=== PATIENT | male | born 1950 | race Caucasian/White ===

== ENCOUNTER 2017-11-21 19:53 | Emergency (ER) | payer MEDICARE, MEDICAID, SELFPAY ==
[2017-11-21 19:55] VITALS: BP 164/93; PULSE 63; RESP 17; TEMP 37.4; O2SAT 97; BMI 26.0
--- NOTE | 2017-11-21 20:00 | RAD_ITS ---
STUDY: X-RAY - RIGHT WRIST REASON FOR EXAM: Male, 67 years old. Injury and pain TECHNIQUE: Three view(s) of the RIGHT wrist were obtained. COMPARISON: None. FINDINGS: Bones: There are no acute osseous abnormalities. Joints: The visualized joints are unremarkable. Soft tissues: The soft tissues are unremarkable. Foreign body: None RAD/Wrist min 3 Views IMPRESSION: No acute abnormalities are seen in the right wrist. Electronically Signed: Puja Lopez MD at 20:28 EDT Tel Direct: [phone], Service support ,
--- NOTE | 2017-11-21 20:05 | RAD_ITS ---
STUDY: X-RAY - RIGHT HAND REASON FOR EXAM: Male, 67 years old. Injury and pain TECHNIQUE: Three view(s) of the hand were obtained. COMPARISON: None. FINDINGS: Bones: There are no acute osseous abnormalities. Joints: There are mild degenerative changes scattered in the interphalangeal joints. Soft tissues: The soft tissues are unremarkable. Foreign body: None RAD/Hand 2 Views IMPRESSION: No acute abnormalities are seen in the right hand. Electronically Signed: Puja Lopez MD at 20:30 EDT Tel Direct: [phone], Service support ,
--- NOTE | 2017-11-21 20:58 | ED.VISSUMM ---
- ER Visit Summary Date of Service: 11/21/17 Chief Complaint: Right wrist injury History of Present Illness: The patient is a 67 M who fell approximately 5 feet from a ladder at noon today. Patient states he was trying to carry something in each hand and lost his balance. He initially had no pain from the fall. Around 6 PM this evening he developed right wrist pain. Patient states in the past he had broken his left wrist and did not have pain until several hours after the injury so he was concerned about his right wrist tonight. He denies striking his head or loss of consciousness. He does not take any anticoagulants. Physical Examination: Vital signs unremarkable other than Blood pressure is 164/93. Head neck examination is unremarkable with no sign of trauma. Heart is regular rate and rhythm. Lung sounds are clear. There is no chest wall tenderness. Abdomen is soft nontender. Right upper extremity examination was mild tenderness diffusely around the right wrist. There is no deformity. Full range of motion is noted. There is no tenderness at the elbow or shoulder. Test Results: Right wrist and hand x-rays are obtained per nursing protocol and reveal no acute fracture. Emergency Department Course and Treatment: Patient had taken some [id number] pain medication prior to arrival and declined anything further for pain here. He is placed in a Velcro wrist splint. He will follow-up with his primary care physician as needed. Treatment Plan: [] Disposition: Discharge Impression: Fall with right wrist sprain This note was generated with [employer] dictation software. It may contain incorrect words, spelling, and punctuation that were not noted in review of the chart prior to signing ED Disposition - Plan for ED Patient: Disposition: Home or Assisted Living Chief Complaint: Upper Extremity Injury Instructions: ED Sprain Wrist Referrals: [facility],Out of [Primary Care Provider] - 1 Week if not improving
[2017-11-21 21:05] VITALS: PULSE 70; RESP 16; O2SAT 98
== END 2017-11-21 21:06 | disposition home or self-care (01) ==
PROVIDERS: Emergency Provider Emergency Medicine
DX: S63.501A Unspecified sprain of right wrist, initial encounter (principal); W11.XXXA Fall on and from ladder, initial encounter; Y92.9 Unspecified place or not applicable; Y99.9 Unspecified external cause status
CPT/HCPCS: 73110; 73120; 99283

== ENCOUNTER → 2021-07-12 15:51 | Outpatient (CLI) | payer MEDICARE, MEDICAID, SELFPAY ==
[2021-07-12 15:54] LABS: Bacteria 0 SEEN /hpf (None Seen); Mucous, Urine 0 SEEN /hpf (<or=2+); Red Blood Cells-Urine 0 SEEN /hpf (0-5); Squamous Epithelial Cells - UA 0 SEEN /hpf (0-5)
[2021-07-12 18:23] LABS: Absolute Lymphocyte Count 1.19 X10^3/uL (0.83-4.51); Basophil# 0.05 X10^3/uL; Basophil% 1.1 % (0-1); Eosinophil# 0.05 X10^3/uL; Eosinophils% 1.1 % (0-5); Hematocrit 44.2 % (40-54); Hemoglobin 14.7 g/dL (13.0-16.5); Lymphocyte # 1.19 X10^3/ul (0.83-4.51); Lymphocyte % 25.5 % (19-41); Mean Corp Hgb Conc 33.3 g/dL (32-36); Mean Corpuscular Hgb 31.3 pg (27.0-32.0); Mean Platelet Vol. 11.7 fl (6.2-12.0); Monocyte# 0.32 X10^3/uL; Monocyte% 6.9 % (0-10); NRBC Flagged by Analyzer 0 % (0-5); Neutrophil # 3.04 X10^3/uL (2.7-7.7); Neutrophil % 65.2 % (47-70); Platelet Count 143 K/mm3 (150-450); RBC Distribution Width CV 12.7 % (11.6-14.6); White Blood Count 4.7 K/mm3 (4.4-11.0)
[2021-07-12 18:30] LABS: Color, Urine Yellow (Yellow); Glucose, Dipstick Normal (Normal); Ketone-Dipstick 5 mg/dl (Negative); Leukocyte Esterase-Dipstick 500 /ul (Negative); Nitrite-Dipstick Negative (Negative); Occult Blood-Urine 25 /ul (Negative); Protein-Dipstick Negative (Negative); Urine Bilirubin Dipstick Negative (Negative); Urine Clarity Clear (Clear); Urine Urobilinogen Normal (Normal)
[2021-07-12 19:00] LABS: White Blood Cells 10-25 SEEN /hpf (0-5)
[2021-07-12 19:05] LABS: ALB/GLOB Ratio 1.1 RATIO (0.9-2.4); AST(SGOT) 23 U/L (15-37); Alanine Aminotransfer ALT/SGPT 27 U/L (16-61); Albumin, Serum 4.1 g/dL (3.2-5.0); Alkaline Phosphatase 70 U/L (45-117); Anion Gap 9 (5-15); BUN 19 mg/dL (7-18); BUN/Creat Ratio 18.6 RATIO (10-20); Calcium,Total 9.1 mg/dL (8.5-10.1); Chloride 106 mmol/L (98-107); Cholesterol 141 mg/dL (200); Creatinine, Serum 1.02 mg/dL (0.70-1.30); EST Glomerular Filtration Rate 77 mL/min (>60); Est Glom Filt Rate - Afr Amer 93 mL/min (>60); Globulin 3.6 g/dL (2.2-4.2); Glucose 83 mg/dL (74-106); High Density Lipoprotein 52 mg/dL; Potassium 3.5 mmol/L (3.5-5.1); Protein, Total 7.7 g/dL (6.4-8.2); Sodium Level 141 mmol/L (136-145); Thyroid Stim Hormone (TSH) 2.31 uIU/mL (0.358-3.74); Triglycerides 48 mg/dL; Very Low Density Lipoprotein 10 mg/dL (5-40)
== END ==
PROVIDERS: Visit Provider Family Medicine
DX: I10 Essential (primary) hypertension (principal)
CPT/HCPCS: 36415; 80053; 80061; 81001; 84443; 85025

== ENCOUNTER 2021-07-18 11:04 | Outpatient (CLI) | payer MEDICARE, MEDICAID, SELFPAY | END 2021-07-18 23:59 | disposition home or self-care (01) | LOC: LABSPEC 11:08 | PROVIDERS: Visit Provider Family Medicine | DX: R31.9 Hematuria, unspecified (principal) | CPT/HCPCS: 87077; 87086; 87088; 87186 ==

== ENCOUNTER 2021-07-29 10:43 | Outpatient (CLI) | payer MEDICARE, MEDICAID, SELFPAY ==
--- NOTE | 2021-07-29 10:47 | ECHOD_ITS ---
Reason For Study: Murmur Procedure This was a 2D Doppler, Color Flow transthoracic echocardiogram. The study was technically difficult. Exam performed in department. Left Ventricle Normal LV size. Mid cavitary false tendon noted. Left ventricular systolic function is normal. The estimated ejection fraction is 55 %. No evidence for diastolic dysfunction. No regional wall motion abnormalities noted. Right Ventricle Normal RV size. Normal systolic function. Atria The left atrium is mildly enlarged. Normal right atrium. No doppler evidence for ASD. Mitral Valve There is no mitral annular calcification. Chordal systolic anterior motion of the mitral valve. Trivial mitral valve insufficiency. Tricuspid Valve Normal tricuspid valve. Trivial tricuspid valve insufficiency. Right ventricular systolic pressure estimated to be 26 mmHg. Aortic Valve The aortic valve is not well visualized, however, based upon the images obtained there appears to be thickening, calcification, and partial restriction. Mild (1+) aortic valve insufficiency. Pulmonic Valve The pulmonic valve is not well visualized. Great Vessels Normal sized aortic root. Pericardium/Pleural No pericardial effusion. MMode/2D Measurements & Calculations LVIDd: 4.6 cm IVSd: 1.1 cm LVOT diam: 2.2 cm LVIDs: 3.6 cm LVPWd: 1.1 cm LVOT area: 3.8 cm2 RVDd: 3.3 cm FS: 22.2 % Ao root diam: 3.6 cm LAV(MOD-bp): 62.0 ml LVAd ap4: 39.2 cm2 LAV(MOD-bp) Indexed: 29.9 ml/m2 LVLd ap4: 9.9 cm LAV(MOD-sp2): 59.4 ml EDV(MOD-sp4): 126.2 ml LAV(MOD-sp4): 62.2 ml EDV(sp4-el): 131.7 ml LVAs ap4: 23.7 cm2 LVLs ap4: 8.1 cm ESV(MOD-sp4): 56.1 ml ESV(sp4-el): 58.9 ml EF(MOD-sp4): 55.5 % EF(sp4-el): 55.3 % SV(MOD-sp4): 70.1 ml SV(sp4-el): 72.9 ml LA A4 area: 20.3 cm2 LA dimension(2D): 4.6 cm RA A4 area: 13.9 cm2 Doppler Measurements & Calculations MV E max chas: 54.0 cm/sec Lat Peak E' Chas: 9.8 cm/sec Med Peak E' Chas: 7.0 cm/sec MV A max chas: 84.2 cm/sec E/E' lat: 5.5 E/E' med: 7.7 MV E/A: 0.64 Ao V2 max: 198.3 cm/sec AI max chas: 492.8 cm/sec LV V1 max: 145.5 cm/sec Ao max P.7 mmHg AI max P.1 mmHg LV V1 max P.5 mmHg Ao V2 mean: 123.7 cm/sec LV V1 mean P.6 mmHg Ao mean P.1 mmHg AI dec slope: 296.6 cm/sec2 LV V1 mean: 102.0 cm/sec Ao V2 VTI: 40.8 cm AI P1/2t: 486.7 msec LV V1 VTI: 34.7 cm JENNIFER(I,D): 3.3 cm2 JENNIFER(V,D): 2.8 cm2 SV(LVOT): 133.0 ml PA V2 max: 88.9 cm/sec TR max chas: 237.1 cm/sec TR max P.5 mmHg ECHO/Echo Complete Interpretation Summary The study was technically difficult. Left ventricular systolic function is normal. The estimated ejection fraction is 55 %. Mid cavitary false tendon noted. The left atrium is mildly enlarged. Chordal systolic anterior motion of the mitral valve. Trivial mitral valve insufficiency. Trivial tricuspid valve insufficiency. The aortic valve is not well visualized, however, based upon the images obtaine d there appears to be thickening, calcification, and partial restriction. Mild (1+) aortic valve insufficiency. Right ventricular systolic pressure estimated to be 26 mmHg. No evidence for diastolic dysfunction. Ordering Physician: Rangel Cruz Referring Physician: Rangel Cruz Performed By: Corina Cortés RDCS
== END 2021-07-29 23:59 | disposition short-term general hospital (02) ==
PROVIDERS: PCP Family Medicine; Referring Provider Family Medicine; Visit Provider Family Medicine
DX: R01.1 Cardiac murmur, unspecified (principal)
CPT/HCPCS: 93306

== ENCOUNTER → 2022-02-22 | Outpatient (CLI) | payer MEDICARE, MEDICAID, SELFPAY ==
[2022-02-22 10:26] LABS: ALB/GLOB Ratio 1.4 RATIO (0.9-2.4); AST(SGOT) 22 U/L (15-37); Alanine Aminotransfer ALT/SGPT 20 U/L (16-61); Albumin, Serum 4.1 g/dL (3.2-5.0); Alkaline Phosphatase 61 U/L (45-117); Anion Gap 7 (5-15); BUN 20 mg/dL (7-18); BUN/Creat Ratio 16.8 RATIO (10-20); Calcium,Total 9.1 mg/dL (8.5-10.1); Chloride 98 mmol/L (98-107); Cholesterol 156 mg/dL (200); Creatinine, Serum 1.19 mg/dL (0.70-1.30); EST Glomerular Filtration Rate 64 mL/min (>60); Est Glom Filt Rate - Afr Amer 78 mL/min (>60); Globulin 2.9 g/dL (2.2-4.2); Glucose 98 mg/dL (74-106); High Density Lipoprotein 52 mg/dL; Potassium 4.1 mmol/L (3.5-5.1); Sodium Level 133 mmol/L (136-145); Triglycerides 55 mg/dL; Very Low Density Lipoprotein 11 mg/dL (5-40)
== END | disposition home or self-care (01) ==
LOC: MFPLAB 09:06
PROVIDERS: PCP Family Medicine; Referring Provider Family Medicine; Visit Provider Nurse Practitioner Family
DX: I10 Essential (primary) hypertension (principal); Z13.220 Encounter for screening for lipoid disorders; Z12.5 Encounter for screening for malignant neoplasm of prostate
CPT/HCPCS: 36415; 80053; 80061; 84153; G0103

== ENCOUNTER → 2022-03-09 | Outpatient (CLI) | payer MEDICARE, MEDICAID, SELFPAY ==
[2022-03-14 18:17] LABS: PSA, Free 1.43 ng/mL; PSA, Free % 29.2 % (.); PSA, Total 4.9 ng/mL (0.0-4.0)
== END | disposition home or self-care (01) ==
PROVIDERS: PCP Family Medicine; Referring Provider Family Medicine; Visit Provider Nurse Practitioner Family
DX: R97.20 Elevated prostate specific antigen [PSA] (principal)
CPT/HCPCS: 84153

== ENCOUNTER 2022-05-01 07:00 | Outpatient (RCR) | payer MEDICARE, MEDICAID, SELFPAY ==
--- NOTE | 2022-04-03 14:03 | HP.PTEVAL_ITS ---
Patient's Visit Information FUAD FELIX is a 71 year old M referred to Physical Therapy by LENARD Sher with a diagnosis of Left Knee and Lumbar Radiculopathy. Date of Evaluation: 04/03/22 Physical Therapist: Crystal Blue DPT - Visit Plan Frequency: 2x /Week Duration: 4 Weeks Plan: Focus on LE and core strength/stabilization. HEP: Posture, SLS, Sit to Stand - Subjective 4.5 years ago walking at [employer]- 5x a week for 45 min- left knee was causing discomfort- tried to walk it out- went to [employer] and bought a small knee brace- rest and it was okay pain level 1-2/10. He has tried different knee braces. In 2020 he spent 7 days shoveling gravel- and he never hurt. In May 2021 he cut down lots of trees- without pain. September 2021 he started to have a 6-7/10. He went to [facility] in [place] and saw LENARD Jones and they did x-rays which showed a lumbar spine abnormality and a bone on bone in the knee. He can't stand for long periods of time (more than 15 minutes). She gave him a Medrol dose pack and Meloxicam and Tylenol- Voltaran gel 4x a day. After the steroids he is almost zero. He does have some discomfort in his knee 1-2/10. He wears a brace all the time- almost painfree with the brace. Prior to the steroid he had pain in the left hip that radiated to the ankle. First 2 hours in the AM he has no pain but as the day progresses it gets worse. He had Numbness when he was standing for long periods of time. Eases: sitting down. He is very active. When he was doing yard work he was a 2/10. He is wearing the knee brace pretty much the whole day. No change in bowel and bladder. No problems with stairs. Sleep: was prior to steroids- always slept on the left side- side to side movement. No specific exercise program. PMHx: HTN Meds: liptor, hydrochlorothiazide. - Objective Posture: moderate FH, RS- can correct RS but not FH with verbal cues- does not maintain. Gait: no deviation noted- good arm swing and trunk rotation. HR/TR: able with UE A. Stairs: asc/desc 8 recip with 1 HR- fair control with descent- decrease stance on left with asc. SLS: 3 sec bilaterally then LOB. ROM: WFL in all planes- mild pain at end range flexion in the knee. Strength: Core: fair minus, Hip: 4+/5, Knee: 5/5, Ankle: 5/5. Flex: HS: severe, Gastroc: moderate. Palpation: tender along medial joint line - Special Tests L/S Slump test left side: Negative L/S Slump test right side: Negative L/S Left Straight Leg Raise: Negative L/S Right Straight Leg Raise: Negative - Balance/Special Test Scores Lower Extremity Functional Score: 39 - Goals Goal 1:: Patient will be I with HEP and progression Goal Time Frame: 4-6 Weeks Goal 2:: Patient will maintain proper posture t/o tx session to demo increased core s/s Goal Time Frame: 4-6 Weeks Goal 3:: Patient will ambulate >300 feet with a normalized gait pattern Goal Time Frame: 4-6 Weeks Goal 4:: Patient will report 80% improvement Goal Time Frame: 4-6 Weeks - Rehabilitation Potential Physical Therapy Diagnosis: Patient presents with hypomobility- he has decreased LE and core strength/stabilization and muscular endurance leading to poor posture and increased pain with ADL's Rehabilitation Potential: Good - Anticipated Interventions Patient/Client Instruction: Educate patient on: Benefits of Fitness Program Therapeutic Exercise to Include: Strength training, Endurance training, Balance training, Coordination, Agility training, Body mechanics, Postural training, Flexibilty training, Gait and locomotor training, Neuromotor development, Dynamic Lumbar Stabilization, Scapular Strength/Stabilization For the Purpose of:: To improve muscle performance and motor function Cryotherapy (ice pack, ice massage): Yes Thermo therapy (hot pack): Yes Thank you for the opportunity to evaluate your patient. For Medicare and Medicare HMO plans, please review the plan of care and approve it. It will need to be FAXED BACK to us at [phone] for Medicare purposes. For Medicare only, by signing this I certify the plan of care. Please let me know if there are questions or concerns regarding this plan of care. Physician Signature: Date:
--- NOTE | 2022-05-01 07:53 | HP.PTDCSUM ---
It has been my pleasure to treat FUAD FELIX referred by LENARD Sher, with the diagnosis of Left Knee and Lumbar Radiculopathy for a total of 9 visit(s). Discharge Date: Please see the following information for a summary of their discharge status. Subjective: Patient reports that overall he is doing great. He has no pain with his normal ADL's. He over did a little this weekend and was sore 07/25. He has since recovered and has no pain this AM. He is back to walking at the [employer] and has joined [employer] to add a strength program. Left Knee Pain Intensity (Out of 10): 2 % Improvement: 90 Objective/Function: Posture: fair throughout in hard back chair. Gait: no deviation noted- good arm swing and trunk rotation. HR/TR: able with UE A. Stairs: asc/desc 8 recip with 1 HR- no deviation noted. SLS: 10 sec bilaterally then LOB. ROM: WFL in all planes. Strength: Core: fair minus, Hip: 4+/5, Knee: 5/5, Ankle: 5/5. Flex: HS: severe, Gastroc: moderate. Wears knee brace. Goal 1:: Patient will be I with HEP and progression Goal Progress: Goal Met Goal 2:: Patient will maintain proper posture t/o tx session to demo increased core s/s Goal Progress: Goal Met Goal 3:: Patient will ambulate >300 feet with a normalized gait pattern Goal Progress: Goal Met Goal 4:: Patient will report 80% improvement Goal Progress: Goal Met Plan: 05/01/22: Discharge to HEP- encouraged him to ask questions if they arise- Recommended going to [employer] for shoe assessment. Re-assess immediately following today's session. If there are questions or concerns regarding this patient's physical therapy, please feel free to call me at [phone]. Thank you for the referral of this patient. Sincerely, Crytsal Blue, DPT Balance/Gait/Functional tests - Balance/Special Test Scores Lower Extremity Functional Score: 74
== END 2022-05-01 08:19 | disposition home or self-care (01) ==
LOC: PT 07:00
PROVIDERS: PCP Family Medicine; Referring Provider Physician Assistant Surgical; Visit Provider Physician Assistant Surgical
DX: M17.12 Unilateral primary osteoarthritis, left knee (principal); M41.86 Other forms of scoliosis, lumbar region
CPT/HCPCS: 97110; 97162; 97164

== ENCOUNTER → 2022-05-18 | Outpatient (CLI) | payer MEDICARE, MEDICAID, SELFPAY ==
--- NOTE | 2022-05-18 07:19 | MRI_ITS ---
STUDY: MRI LUMBAR SPINE WITHOUT CONTRAST REASON FOR EXAM: Male, 71 years old. SPINAL STENOSIS TECHNIQUE: Standardized fat and water weighted pulse sequences were obtained in the sagittal and axial planes. COMPARISON: None FINDINGS: T11-T12 and T12-L1: (Sagittal images). Normal endplates. Normal disc height, hydration and morphology. No ventral epidural defects. Normal central canal and bilateral intervertebral neural foramina. Normal lumbar lordosis. There is no substantial scoliosis. Normal conus medullaris that terminates at the lower L1 vertebral body level. L1-2: Normal endplates. Moderate disc space narrowing. Mild degenerative retrolisthesis of L1 on L2. Mild asymmetric degenerative facet arthropathy. Normal central canal and bilateral lateral recesses. Normal bilateral intervertebral neural foramina. L2-3: Mild Modic type I degenerative vertebral marrow edema underlying the left side of the vertebral endplates. Moderate disc space narrowing. Mild degenerative retrolisthesis of L2 on L3. Mild asymmetric degenerative facet arthropathy. Normal central canal and bilateral lateral recesses. Normal bilateral intervertebral neural foramina. L3-4: Normal endplates. Normal disc height and hydration. Minimal ventral extradural defect due to small posterior bulging annulus. Normal facet joints. Normal central canal and bilateral lateral recesses. Normal bilateral intervertebral neural foramina. L4-5: Mild Modic type II degenerative vertebral marrow fat infiltration underneath the right side of the vertebral endplates. Moderate right-sided disc space height narrowing. Mild asymmetric degenerative facet arthropathy. Normal central canal and bilateral lateral recesses. Moderate stenosis of the right intervertebral neural foramen. Normal left intervertebral neural foramen. L5-S1: Normal endplates. Normal disc height, hydration and morphology. Normal bilateral facet joints. Normal central canal and bilateral lateral recesses. Normal bilateral intervertebral neural foramina. Normal visualized sacral ala. Normal visualized paraspinous soft tissue structures. MRI/Spine Lumbar (Routine) IMPRESSION: 1. Moderate stenosis of the right L4-L5 intervertebral neural foramen with suspicious impingement/entrapment of the right L4 nerve and moderate right-sided disc space narrowing with Modic type II degenerative changes underneath the vertebral endplates. 2. Mild left-sided L2-L3 intervertebral osteochondritis (Modic type I) and mild degenerative retrolisthesis of L2 on L3. 3. Minimal degenerative retrolisthesis of L1 on L2. 4. No MRI evidence of lumbar extruded disc fragment. Electronically Signed: Leonidas Sandoval MD at 15:36 EDT ,
== END | disposition home or self-care (01) ==
LOC: MRI 07:13
PROVIDERS: PCP Family Medicine; Referring Provider Orthopaedic Surgery; Visit Provider Orthopaedic Surgery
DX: M48.061 Spinal stenosis, lumbar region without neurogenic claudication (principal); M47.26 Other spondylosis with radiculopathy, lumbar region; M51.36 Other intervertebral disc degeneration, lumbar region
CPT/HCPCS: 72148

== ENCOUNTER → 2022-08-22 | Outpatient (CLI) | payer MEDICARE, MEDICAID, SELFPAY ==
[2022-08-22 09:04] LABS: Mucous, Urine 0 SEEN /hpf (<or=2+); Red Blood Cells-Urine 0 SEEN /hpf (0-5)
[2022-08-22 10:07] LABS: Absolute Lymphocyte Count 0.98 X10^3/uL (0.83-4.51); Absolute Neutrophil Count 3.8 X10^3/uL (2.0-7.7); Basophil# 0.03 X10^3/uL; Basophil% 0.6 % (0-1); Eosinophil# 0.04 X10^3/uL; Eosinophils% 0.8 % (0-5); Hematocrit 41.4 % (40-54); Hemoglobin 13.4 g/dL (13.0-16.5); Lymphocyte # 0.98 X10^3/ul (0.83-4.51); Lymphocyte % 18.8 % (19-41); Mean Corp Hgb Conc 32.4 g/dL (32-36); Mean Corpuscular Hgb 31.6 pg (27.0-32.0); Mean Corpuscular Volume 97.6 fL (80-94); Mean Platelet Vol. 11.9 fl (6.2-12.0); Monocyte# 0.36 X10^3/uL; Monocyte% 6.9 % (0-10); NRBC Flagged by Analyzer 0 % (0-5); Neutrophil # 3.78 X10^3/uL (2.7-7.7); Neutrophil % 72.7 % (47-70); Platelet Count 116 K/mm3 (150-450); RBC Distribution Width CV 12.7 % (11.6-14.6); RBC Distribution Width SD 44.9 fl (35.1-43.9); Red Blood Count 4.24 M/mm3 (4.6-6.2); White Blood Count 5.2 K/mm3 (4.4-11.0)
[2022-08-22 10:14] LABS: Color, Urine Yellow (Yellow); Glucose, Dipstick Normal (Normal); Ketone-Dipstick Negative (Negative); Leukocyte Esterase-Dipstick 500 /ul (Negative); Nitrite-Dipstick Negative (Negative); Occult Blood-Urine Negative /ul (Negative); Protein-Dipstick Negative (Negative); Specific Gravity, Urine 1.005 (1.002-1.030); Urine Bilirubin Dipstick Negative (Negative); Urine Clarity Clear (Clear); Urine Urobilinogen Normal (Normal); Urine pH 6.5 (5.0 - 8.0)
[2022-08-22 10:22] LABS: Bacteria RARE /hpf (None Seen); Squamous Epithelial Cells - UA 0-5 SEEN /hpf (0-5); White Blood Cells 5-10 SEEN /hpf (0-5)
[2022-08-22 11:44] LABS: ALB/GLOB Ratio 1.3 RATIO (0.9-2.4); AST(SGOT) 21 U/L (15-37); Alanine Aminotransfer ALT/SGPT 19 U/L (16-61); Albumin, Serum 3.9 g/dL (3.2-5.0); Alkaline Phosphatase 54 U/L (45-117); Anion Gap 8 (5-15); BUN 23 mg/dL (7-18); BUN/Creat Ratio 19.8 RATIO (10-20); Calcium,Total 9.3 mg/dL (8.5-10.1); Chloride 108 mmol/L (98-107); Cholesterol 136 mg/dL (200); Creatinine, Serum 1.16 mg/dL (0.70-1.30); EST Glomerular Filtration Rate 66 mL/min (>60); Est Glom Filt Rate - Afr Amer 80 mL/min (>60); Glucose 93 mg/dL (74-106); High Density Lipoprotein 46 mg/dL; Potassium 3.9 mmol/L (3.5-5.1); Protein, Total 6.9 g/dL (6.4-8.2); Sodium Level 142 mmol/L (136-145); Thyroid Stim Hormone (TSH) 2.09 uIU/mL (0.358-3.74); Triglycerides 59 mg/dL; Very Low Density Lipoprotein 12 mg/dL (5-40)
[2022-08-23 19:08] LABS: PSA, Free 1.55 ng/mL; PSA, Free % 31.7 % (.)
== END | disposition home or self-care (01) ==
LOC: MFPLAB 09:01
PROVIDERS: PCP Family Medicine; Referring Provider Family Medicine; Visit Provider Family Medicine
DX: I10 Essential (primary) hypertension (principal); R97.20 Elevated prostate specific antigen [PSA]
CPT/HCPCS: 36415; 80053; 80061; 81001; 84153; 84154; 84443; 85025

== ENCOUNTER → 2023-03-22 | Outpatient (CLI) | payer MEDICARE, MEDICAID, SELFPAY ==
[2023-03-22 08:39] LABS: Mucous, Urine 0 SEEN /hpf (<or=2+)
[2023-03-22 10:21] LABS: Color, Urine Yellow (Yellow); Glucose, Dipstick Normal (Normal); Ketone-Dipstick Negative (Negative); Leukocyte Esterase-Dipstick 100 /ul (Negative); Nitrite-Dipstick Negative (Negative); Occult Blood-Urine 10 /ul (Negative); Protein-Dipstick Negative (Negative); Urine Bilirubin Dipstick Negative (Negative); Urine Clarity Clear (Clear); Urine Urobilinogen Normal (Normal)
[2023-03-22 10:26] LABS: Absolute Lymphocyte Count 0.95 X10^3/uL (0.83-4.51); Absolute Neutrophil Count 2.8 X10^3/uL (2.0-7.7); Basophil# 0.04 X10^3/uL; Basophil% 0.9 % (0-1); Eosinophil# 0.12 X10^3/uL; Eosinophils% 2.8 % (0-5); Hemoglobin 13.6 g/dL (13.0-16.5); Lymphocyte # 0.95 X10^3/ul (0.83-4.51); Lymphocyte % 22.2 % (19-41); Mean Corp Hgb Conc 33.2 g/dL (32-36); Mean Corpuscular Hgb 31.9 pg (27.0-32.0); Mean Platelet Vol. 11.4 fl (6.2-12.0); Monocyte# 0.32 X10^3/uL; Monocyte% 7.5 % (0-10); NRBC Flagged by Analyzer 0 % (0-5); Neutrophil # 2.83 X10^3/uL (2.7-7.7); Neutrophil % 66.4 % (47-70); Platelet Count 126 K/mm3 (150-450); RBC Distribution Width CV 12.8 % (11.6-14.6); RBC Distribution Width SD 45.4 fl (35.1-43.9); Red Blood Count 4.27 M/mm3 (4.6-6.2); White Blood Count 4.3 K/mm3 (4.4-11.0)
[2023-03-22 10:35] LABS: Bacteria RARE /hpf (None Seen); Red Blood Cells-Urine 0-5 SEEN /hpf (0-5); Squamous Epithelial Cells - UA 0-5 SEEN /hpf (0-5); White Blood Cells 5-10 SEEN /hpf (0-5)
[2023-03-22 10:55] LABS: ALB/GLOB Ratio 1.3 RATIO (0.9-2.4); AST(SGOT) 20 U/L (15-37); Alanine Aminotransfer ALT/SGPT 21 U/L (16-61); Albumin, Serum 3.9 g/dL (3.2-5.0); Alkaline Phosphatase 56 U/L (45-117); Anion Gap 5 (5-15); BUN 20 mg/dL (7-18); BUN/Creat Ratio 16.8 RATIO (10-20); Calcium,Total 9.2 mg/dL (8.5-10.1); Chloride 107 mmol/L (98-107); Cholesterol 122 mg/dL (200); Creatinine, Serum 1.19 mg/dL (0.70-1.30); EST Glomerular Filtration Rate 64 mL/min (>60); Est Glom Filt Rate - Afr Amer 78 mL/min (>60); Globulin 3.1 g/dL (2.2-4.2); Glucose 98 mg/dL (74-106); High Density Lipoprotein 44 mg/dL; Potassium 3.8 mmol/L (3.5-5.1); Sodium Level 140 mmol/L (136-145); Triglycerides 68 mg/dL; Very Low Density Lipoprotein 14 mg/dL (5-40)
[2023-03-23 13:07] LABS: PSA, Free 1.24 ng/mL; PSA, Free % 33.9 % (.)
== END | disposition home or self-care (01) ==
LOC: MFPLAB 08:37
PROVIDERS: PCP Family Medicine; Visit Provider Family Medicine
DX: I10 Essential (primary) hypertension (principal); R97.20 Elevated prostate specific antigen [PSA]
CPT/HCPCS: 36415; 80053; 80061; 81001; 84153; 84154; 85025

== ENCOUNTER → 2023-09-25 | Outpatient (CLI) | payer OTHER, SELFPAY ==
[2023-09-25 08:27] LABS: Bacteria 0 SEEN /hpf (None Seen); Mucous, Urine 0 SEEN /hpf (<or=2+); Red Blood Cells-Urine 0 SEEN /hpf (0-5)
[2023-09-25 10:13] LABS: Absolute Lymphocyte Count 0.86 X10^3/uL (0.83-4.51); Absolute Neutrophil Count 2.4 X10^3/uL (2.0-7.7); Basophil# 0.04 X10^3/uL; Basophil% 1.1 % (0-1); Eosinophil# 0.07 X10^3/uL; Eosinophils% 1.9 % (0-5); Hematocrit 39.7 % (40-54); Lymphocyte # 0.86 X10^3/ul (0.83-4.51); Lymphocyte % 23.7 % (19-41); Mean Corp Hgb Conc 32.7 g/dL (32-36); Mean Corpuscular Hgb 31.2 pg (27.0-32.0); Mean Corpuscular Volume 95.2 fL (80-94); Monocyte# 0.27 X10^3/uL; Monocyte% 7.4 % (0-10); NRBC Flagged by Analyzer 0 % (0-5); Neutrophil # 2.38 X10^3/uL (2.7-7.7); Neutrophil % 65.6 % (47-70); Platelet Count 153 K/mm3 (150-450); RBC Distribution Width CV 12.6 % (11.6-14.6); RBC Distribution Width SD 43.9 fl (35.1-43.9); Red Blood Count 4.17 M/mm3 (4.6-6.2); White Blood Count 3.6 K/mm3 (4.4-11.0)
[2023-09-25 10:21] LABS: Color, Urine Yellow (Yellow); Glucose, Dipstick Normal (Normal); Ketone-Dipstick Negative (Negative); Leukocyte Esterase-Dipstick 100 /ul (Negative); Nitrite-Dipstick Negative (Negative); Occult Blood-Urine Negative /ul (Negative); Protein-Dipstick Negative (Negative); Specific Gravity, Urine 1.005 (1.002-1.030); Urine Bilirubin Dipstick Negative (Negative); Urine Clarity Clear (Clear); Urine Urobilinogen Normal (Normal)
[2023-09-25 10:32] LABS: Squamous Epithelial Cells - UA 0-5 SEEN /hpf (0-5); White Blood Cells 10-25 SEEN /hpf (0-5)
[2023-09-25 11:09] LABS: ALB/GLOB Ratio 1.2 RATIO (0.9-2.4); AST(SGOT) 23 U/L (15-37); Alanine Aminotransfer ALT/SGPT 25 U/L (16-61); Albumin, Serum 3.8 g/dL (3.2-5.0); Alkaline Phosphatase 65 U/L (45-117); Anion Gap 4 (5-15); BUN 19 mg/dL (7-18); BUN/Creat Ratio 15.3 RATIO (10-20); Calcium,Total 9.3 mg/dL (8.5-10.1); Chloride 106 mmol/L (98-107); Cholesterol 132 mg/dL (200); Creatinine, Serum 1.24 mg/dL (0.70-1.30); EST Glomerular Filtration Rate 61 mL/min (>60); Est Glom Filt Rate - Afr Amer 74 mL/min (>60); Globulin 3.2 g/dL (2.2-4.2); Glucose 95 mg/dL (74-106); High Density Lipoprotein 45 mg/dL; Magnesium 2.2 mg/dL (1.6-2.6); Potassium 3.9 mmol/L (3.5-5.1); Sodium Level 140 mmol/L (136-145); Thyroid Stim Hormone (TSH) 1.57 uIU/mL (0.358-3.74); Triglycerides 67 mg/dL; Very Low Density Lipoprotein 13 mg/dL (5-40)
== END | disposition home or self-care (01) ==
LOC: MFPLAB 08:26
PROVIDERS: PCP Family Medicine; Visit Provider Family Medicine
DX: I10 Essential (primary) hypertension (principal)
CPT/HCPCS: 36415; 80053; 80061; 81001; 83735; 84443; 85025; 87086

== ENCOUNTER → 2024-04-02 | Outpatient (CLI) | payer OTHER, SELFPAY ==
[2024-04-02 10:32] LABS: PSA,Total - Annual Screen 4.48 ng/mL (0.00-4.00)
== END | disposition home or self-care (01) ==
LOC: MFPLAB 09:04
PROVIDERS: PCP Family Medicine; Visit Provider Family Medicine
DX: Z12.5 Encounter for screening for malignant neoplasm of prostate (principal)
CPT/HCPCS: 36415; 84153; G0103

== ENCOUNTER → 2024-10-01 | Outpatient (CLI) | payer OTHER, SELFPAY ==
[2024-10-01 08:20] LABS: Bacteria 0 SEEN /hpf (None Seen); Mucous, Urine 0 SEEN /hpf (<or=2+); Squamous Epithelial Cells - UA 0 SEEN /hpf (0-5)
[2024-10-01 10:23] LABS: Absolute Lymphocyte Count 1.19 X10^3/uL (0.83-4.51); Absolute Neutrophil Count 3.7 X10^3/uL (2.0-7.7); Basophil# 0.06 X10^3/uL; Basophil% 1.1 % (0-1); Eosinophil# 0.06 X10^3/uL; Eosinophils% 1.1 % (0-5); Hematocrit 40.8 % (40-54); Hemoglobin 13.5 g/dL (13.0-16.5); Lymphocyte # 1.19 X10^3/ul (0.83-4.51); Lymphocyte % 21.6 % (19-41); Mean Corp Hgb Conc 33.1 g/dL (32-36); Mean Corpuscular Hgb 31.9 pg (27.0-32.0); Mean Corpuscular Volume 96.5 fL (80-94); Mean Platelet Vol. 11.4 fl (6.2-12.0); Monocyte# 0.45 X10^3/uL; Monocyte% 8.2 % (0-10); NRBC Flagged by Analyzer 0 % (0-5); Neutrophil # 3.74 X10^3/uL (2.7-7.7); Neutrophil % 67.6 % (47-70); Platelet Count 121 K/mm3 (150-450); RBC Distribution Width CV 12.9 % (11.6-14.6); RBC Distribution Width SD 45.1 fl (35.1-43.9); Red Blood Count 4.23 M/mm3 (4.6-6.2); White Blood Count 5.5 K/mm3 (4.4-11.0)
[2024-10-01 10:44] LABS: Color, Urine Yellow (Yellow); Glucose, Dipstick Normal (Normal); Ketone-Dipstick Negative (Negative); Leukocyte Esterase-Dipstick 500 /ul (Negative); Nitrite-Dipstick Negative (Negative); Occult Blood-Urine 25 /ul (Negative); Protein-Dipstick 15 mg/dl (Negative); Urine Bilirubin Dipstick Negative (Negative); Urine Clarity Sl. Cloudy (Clear); Urine Urobilinogen Normal (Normal)
[2024-10-01 10:53] LABS: White Blood Cells >100 SEEN /hpf (0-5)
[2024-10-01 10:54] LABS: Red Blood Cells-Urine 0 SEEN /hpf (0-5)
[2024-10-01 11:45] LABS: ALB/GLOB Ratio 1.6 RATIO (0.9-2.4); AST(SGOT) 22 U/L (<=37); Alanine Aminotransfer ALT/SGPT 13 U/L (<=46); Albumin, Serum 4.3 g/dL (3.4-4.8); Alkaline Phosphatase 61 U/L (40-129); Anion Gap 12 (5-15); BUN 25 mg/dL (4-19); Calcium,Total 9.5 mg/dL (7.6-11.0); Carbon Dioxide 24.3 mmol/L (21.0-32.0); Chloride 104 mmol/L (98-108); Cholesterol 144 mg/dL (<=200); Creatinine, Serum 1.19 mg/dL (0.70-1.20); EST Glomerular Filtration Rate 65 (>60); Globulin 2.6 g/dL (2.2-4.2); Glucose 94 mg/dL (70-99); High Density Lipoprotein 52 mg/dL; Low Density Lipoprotein Calc. 80 mg/dL; Magnesium 2.1 mg/dL (1.5-2.2); Potassium 3.8 mmol/L (3.3-5.1); Sodium Level 140 mmol/L (133-145); Total Bilirubin 0.59 mg/dL (0.00-1.30); Triglycerides 59 mg/dL; Very Low Density Lipoprotein 12 mg/dL (5-40); cholesterol:hdl ratio screen 2.76
[2024-10-02 13:08] LABS: PSA, Free 1.53 ng/mL; PSA, Free % 33.8 % (.)
== END | disposition home or self-care (01) ==
LOC: MFPLAB 08:18
PROVIDERS: PCP Family Medicine; Referring Provider Family Medicine; Visit Provider Family Medicine
DX: I10 Essential (primary) hypertension (principal); R97.20 Elevated prostate specific antigen [PSA]
CPT/HCPCS: 36415; 80053; 80061; 81001; 83735; 84153; 84154; 85025

== ENCOUNTER → 2024-10-02 | Outpatient (CLI) | payer OTHER, SELFPAY | END | disposition home or self-care (01) | LOC: LABSPEC 10:24 | PROVIDERS: PCP Family Medicine; Referring Provider Family Medicine; Visit Provider Family Medicine | DX: R82.81 Pyuria (principal) | CPT/HCPCS: 87077; 87086; 87088; 87186 ==

== ENCOUNTER → 2024-12-22 | Outpatient (CLI) | payer MEDICARE, SELFPAY ==
--- OUTSIDE RECORDS SUMMARY | 2024-12-22 06:49 | XMS RPT_ITS | CCD ---
Author Organization [facility] Care Team Providers Care Refinery Technician Name Role Phone Dr. Rangel Cruz Primary Care Provider [phone] Dr. Rangel Cruz Referring Provider LENARD Guzman Attending Provider Anthony GARZA, Dr. Rangel Glez Primary Care Provider Anthony GARZA, Dr. Rangel Glez Attending Provider Anthony GARZA, Dr. Rangel Glez Referring Provider Andrew GARZA, Dr. Machado Attending Provider Rangel Cruz Referring Unavailable Rangel Cruz Primary Care Unavailable Jeannette Morales Attending Unavailable Rangel Cruz Primary Care Unavailable Rangel Cruz Attending Unavailable Rangel Cruz Referring Unavailable Rangel Cruz Primary Care Unavailable Rangel Cruz Attending Unavailable Rangel Cruz Referring Unavailable Rangel Cruz Primary Care Unavailable Rangel Cruz Attending Unavailable Rangel Cruz Primary Care Unavailable Jeannette Morales Attending Unavailable Jeannette Morales Referring Unavailable Rangel Cruz Primary Care Unavailable Jeannette Morales Attending Unavailable Jeannette Morales Referring Unavailable Medications Current Medications Medication Drug Class(es) Dates Sig (Normalized) Sig (Original) hydroCHLOROthiazide 25 mg oral tablet (1 source) Thiazide Diuretic Start: 5 Hydrochlorothiazide 25 mg tablet Active mg PO December 15, 2024 12:00am lisinopril 5 mg oral tablet (5 sources) Angiotensin Converting Enzyme Inhibitor Start: 3 take 1 tablet by mouth once daily Lisinopril 5 mg tablet Active 5 mg PO DAILY March 24, 2023 12:00am melatonin 5 mg oral tablet (1 source) Start: 5 take 1 tablet by mouth at bedtime Melatonin 5 mg tablet Active 5 mg PO BEDTIME December 15, 2024 12:00am meloxicam 7.5 mg oral tablet (1 source) Nonsteroidal Anti-inflammator y Drug Start: 5 Meloxicam 7.5 mg tablet Active mg PO December 15, 2024 12:00am Ujsfzjuq-Tgb-Eh-Lycopen -Lutein (Centrum Silver) 0.4 mg-300 mcg- 250 mcg tablet (1 source) Start: 5 take 1 tablet by mouth once daily Zvjfeamo-Eai-Kg-Lycope n-Lutein (Centrum Silver) 0.4 mg-300 mcg- 250 mcg tablet Active 1 {tbl} PO daily December 15, 2024 12:00am Prevagen Extra Strength (1 source) Start: 5 Prevagen Extra Strength Active PO DAILY December 15, 2024 12:00am Prostate Health Beta Plus (1 source) Start: 5 Prostate Health Beta Plus Active PO DAILY December 15, 2024 12:00am traZODone hydrochloride 100 mg oral tablet (6 sources) Serotonin Reuptake Inhibitor Start: 5 Trazodone 100 mg tablet Active mg PO December 15, 2024 12:00am Start: 03-24-2023 End: 12-15-2024 take 1 tablet by mouth once daily Trazodone 50 mg tablet Discontinued 50 mg PO DAILY March 24, 2023 12:00am December 15, 2024 6:35am Problems Problem Classification Problem Date Documented Da te Episodic/Chronic Cardiac dysrhythmias (4 sources) Multiple premature ventricular complexes; Translations: [Ventricular premature depolarization] Onset: 12-16-2024 12-16-2024 Chronic Cardiac dysrhythmias (4 sources) Bradycardia; Translations: [Bradycardia, unspecified] Onset: 12-16-2024 12-16-2024 Episodic Essential hypertension (3 sources) Hypertensive disorder; Translations: [Essential (primary) hypertension] Onset: 12-16-2024 12-15-2024 Chronic Osteoarthritis (1 source) Arthritis; Translations: [Unspecified osteoarthritis, unspecified site] 12-15-2024 Chronic Other screening for suspected conditions (not mental disorders or infectious disease) (5 sources) Raised prostate specific antigen; Translations: [Elevated prostate specific antigen [PSA]] Onset: 04-24-2024 12-15-2024 Episodic Poisoning by nonmedicinal substances (6 sources) Hornet sting; Translations: [Toxic effect of venom of hornets, accidental (unintentional), initial encounter] 03-24-2023 Episodic Residual codes; unclassified (1 source) Insomnia; Translations: [Insomnia, unspecified] 12-15-2024 Episodic Unclassified (1 source) Pyuria; Translations: [Pyuria] Onset: 10-10-2024 Results Test Name Value Interpretation Reference Range Facility Cardiology Visit Reporton Cardiology Visit Report [facility] [address] [place], [place] [address] OFFICE VISIT Date of Service: 12/16/24 MR#: [id number] Acct: [id number] Name: FUAD FELIX Rep #: [id number] : 1950 Provider: Dr. Jeannette Morales MD Age/Sex: 74/M Location: [facility] [place] Status: Signed HPI HPI History of Present Illness Details: This very pleasant 74-year-old gentleman with past medical history significant for hypertension has been referred to us for bradycardia and PVCs. Patient exercises every day doing stationary bike as well as resistance training. Denies any lightheadedness or dizziness. No syncope or presyncope. Denies any chest pains or shortness of breath either at rest or with exertion. No palpitations. No orthopnea. No PND. No ankle edema. Patient has had an ECG done at his primary care physician's office. It showed sinus bradycardia with a PVC. Subsequently he has been referred to us. An echocardiogram done in 2021 reported chordal JONE. 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 Accompanied by: Self Is patient in pain?: No Allergies No Known Allergies Allergy (Verified 12/16/24 08:37) Medications ???Medication ???Instructions ???Recorded ???Confirmed ???Type lisinopril 5 mg tablet 5 mg PO DAILY 03/24/23 12/16/24 Hi story Prevagen Extra Strength PO DAILY 12/15/24 History Prostate Health Beta Plus PO DAILY 12/15/24 History hydrochlorothiazide 25 mg tablet mg PO 12/15/24 12/16/24 History melatonin 5 mg tablet 5 mg PO HS 12/15/24 12/16/24 Histo ry meloxicam 7.5 mg tablet mg PO 12/15/24 12/16/24 History zvravobn-byr-erbfm acid 0.4 1 tab PO QDAY 12/15/24 12/16/24 Hi story mg-lycopene 300 mcg-lutein 250 mcg tablet (Centrum Silver) trazodone 100 mg tablet mg PO 12/15/24 12/16/24 History Ejection fraction %: 55 Have you fallen in the past year?: No PFSH Medical History Arthritis Bradycardia Elevated PSA Hypertension Insomnia Surgical History History of inguinal hernia repair Family History Father Myocardial infarction Mother Dementia Social History current occupational status: retired 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[employer]) sexually active: No do you think of yourself as: straight/heterosexual Smoking Status: Current some day smoker tobacco type: pipe other: rarely in the summer; quit regular smoking in 2021 alcohol intake: never substance use type: does not use ROS Const Const: Negative for fatigue, weakness, headache(s) or weight gain ENT ENT: Negative for headache(s), dizziness, Nosebleed/epistaxis or balance problems Cardio Chest Pain: No Palpitations: No Edema: None Muscle aches with walking: None Resp Respiratory: Negative for SOB with activity, SOB at rest or SOB orthopnea SOB lying down GI GI: Negative nausea, vomiting or heartburn Musc Musc: Positive for joint pain (orthopedic degeneration); Negative for muscle aches/ myalgia, muscle weakness or balance problems Neuro Neuro: Negative for dizziness, lightheadedness, near syncope, syncope, headache(s) or weakness Endo Endo: Negative for fatigue Cardiology Exam Const Appearance: comfortable and no acute distress Nutritional Appearance: well nourished Neck Neck: no JVD Carotids: Negative bruit Chest Auscultation: Bilateral: Clear to Auscultation Cardio Rate: regular rate Rhythm: regular rhythm Heart sounds: S1 normal and S2 normal Neuro General: patient alert, patient awake and patient oriented x3 Extremities Lower Extremity Edema: None: Bilateral Supplemental Info Supplemental Information Echocardiogram 07/29/2021: Interpretation Summary The study was technically difficult. Left ventricular systolic function is normal. The estimated ejection fraction is 55 %. Mid cavitary false tendon noted. The left atrium is mildly enlarged. Chordal systolic anterior motion of the mitral valve. Trivial mitral valve insufficiency. Trivial tricuspid valve insufficiency. The aortic valve is not well visualized, however, based upon the images obtained there appears to be thickening, calcification, and partial restriction. Mild (1+) aortic valve insufficiency. Right ventricular systolic pressure estimated to be 26 mmHg. No evidence for diastolic dysfunction. Assessment and (more content not included)... Normal [facility] Urine Cultureon 10-04-2024 [facility] Staphylococcus epidermidis [place] Count 50,000-80,000 Staphylococcus epidermidis: REACTION cefOXitin Susc Islt Doxycycline Islt DAYANNA 1 S Clindamycin.induced Susc Islt NEG Gentamicin Islt DAYANNA <=0.5 S Linezolid Islt DAYANNA 1 S Nitrofurantoin Islt DAYANNA <=16 S Oxacillin Susc Islt <=0.25 S Tetracycline Islt DAYANNA 2 S TMP SMX Islt DAYANNA 160 R Vancomycin Islt DAYANNA 1 S Normal [facility] Comment on above: Performed By: #### M 100.2200 #### [facility] [address] [place], [address] PSA Total+%Freeon 10-02-2024 PSA, FREE 1.53 ng/mL Normal N/A [facility] Comment on above: Order Comment: Order Date: 10/01/24 Order Info: [id number] - PSAT%F Result Comment: Tommy GIBBONS methodology. Performed By: #### L 100.0100, L501.5200, L500.4050, L3110.0500, L500.4100 #### [facility] [address] [place], [address] PSA, FREE % 33.8 Normal . [facility] Comment on above: Order Comment: Order Date: 10/01/24 Order Info: [id number] - PSAT%F Result Comment: The table below lists the probability of prostate cancer for men with non-suspicious SHARI results and total PSA between 4 and 10 ng/mL, by patient age (Bozena et al, ITZEL 1998, 279:1542). % Free PSA 50-64 yr 65-75 yr 0.00-10.00% 56% 55% 10.01-15.00% 24% 35% 15.01-20.00% 17% 23% 20.01-25.00% 10% 20% >25.00% 5% 9% Please note: Bozena et al did not make specific recommendations regarding the use of percent free PSA for any other population of men. Performed at: [address] [id number] International Trade Analyst: Earnest Flores PhD, Phone: [phone] Performed By: #### L 100.0100, L501.5200, L500.4050, L3110.0500, L500.4100 #### [facility] [address] [place], [place], [id number] PSA, TOTAL ULTR 4.530 ng/mL Abnormal 0.000-4.000 [facility] Comment on above: Order Comment: Order Date: 10/01/24 Order Info: 0756-1 - PSAT%F Result Comment: Tommy GIBBONS methodology. According to the [place] [employer], Serum PSA should decrease and remain at undetectable levels after radical prostatectomy. The AUA defines biochemical recurrence as an initial PSA value 0.200 ng/mL or greater followed by a subsequent confirmatory PSA value 0.200 ng/mL or greater. Values obtained with different assay methods or kits cannot be used interchangeably. Results cannot be interpreted as absolute evidence of the presence or absence of malignant disease. Performed By: #### L 100.0100, L501.5200, L500.4050, L3110.0500, L500.4100 #### [facility] [address] [place], [place], [id number] Urine cultureOrdered By: James Cruz on 10-02-2024 Bacteria identified Cx Nom (U) Staphylococcus epidermidis Abnormal [facility] Absolute lymphocyte countOrd ered By: Rangel Cruz on 10-01-2024 Lymphocytes Auto (Unsp spec) [#/Vol] 1.19 10*3/uL 0.83-4.51 [facility] Absolute neutrophil countOrd ered By: Rangel Cruz on 10-01-2024 Neutrophils (Bld) [#/Vol] 3.7 10*3/uL 2.0-7.7 [facility] Anion gap in Serum or Plasma Ordered By: Rangel Cruz on 10-01-2024 Anion gap [Moles/Vol] 12 mmol/L 5-15 [facility] Automated lymphocyte count a s percentage of total leukocytesOrdered By: Rangel Cruz on 10-01-2024 Lymphocytes/100 WBC Auto (Unsp spec) 21.6 % - [facility] BUN/creatinine ratioOrdered By: Rangel Cruz on 10-01-2024 Urea nitrogen/Creatinine [Mass ratio] 21.0 mg/mg High 10-20 [facility] Basophil percentageOrdered B y: Rangel Cruz on 10-01-2024 Basophils/100 WBC (Bld) 1.1 % High 0-1 [facility] Bilirubin Test strip Ql (U)O rdered By: Rangel Cruz on 10-01-2024 Bilirubin Ql (U) Negative Negative [facility] Bilirubin, totalOrdered By: Rangel Cruz on 10-01-2024 Bilirubin [Mass/Vol] 0.59 mg/dL 0.00-1.30 [facility] CBC W/Diff, Automatedon 09-13 Absolute Lymph 1.19 X10 3/uL Normal 0.83-4.51 [facility] Comment on above: Order Comment: Order Date: 10/01/24 Order Info: [id number] - CBCD Performed By: #### L 100.0100, L501.5200, L500.4050, L3110.0500, L500.4100 #### [facility] [address] [place], [address] Absolute Neut 3.7 X10 3/uL Normal 2.0-7.7 [facility] Comment on above: Order Comment: Order Date: 10/01/24 Order Info: [id number]- - CBCD Performed By: #### L 100.0100, L501.5200, L500.4050, L3110.0500, L500.4100 #### [facility] [address] [place], [address] Basophils/100 WBC (Bld) 1.1 % High 0-1 [facility] Comment on above: Order Comment: Order Date: 10/01/24 Order Info: [id number]- - CBCD Performed By: #### L 100.0100, L501.5200, L500.4050, L3110.0500, L500.4100 #### [facility] [address] [place], [address] Eosinophils/100 WBC (Bld) 1.1 % Normal 0-5 [facility] Comment on above: Order Comment: Order Date: 10/01/24 Order Info: [id number]- - CBCD Performed By: #### L 100.0100, L501.5200, L500.4050, L3110.0500, L500.4100 #### [facility] [address] [place], [address] Erythrocyte distribution width (RBC) [Ratio] 12.9 % Normal 11.6-14.6 [facility] Comment on above: Order Comment: Order Date: 10/01/24 Order Info: [id number]- - CBCD Performed By: #### L 100.0100, L501.5200, L500.4050, L3110.0500, L500.4100 #### [facility] [address] [place], [address] Hematocrit (Bld) [Volume fraction] 40.8 % Normal 40-54 [facility] Comment on above: Order Comment: Order Date: 10/01/24 Order Info: [id number] - CBCD Performed By: #### L 100.0100, L501.5200, L500.4050, L3110.0500, L500.4100 #### [facility] [address] [place], [address] Hemoglobin (Bld) [Mass/Vol] 13.5 g/dL Normal 13.0-16.5 [facility] Comment on above: Order Comment: Order Date: 10/01/24 Order Info: 0184-1 - CBCD Performed By: #### L 100.0100, L501.5200, L500.4050, L3110.0500, L500.4100 #### [facility] [address] [place], [address] IG% 0.400 Normal 0.0-0.9 [facility] Comment on above: Order Comment: Order Date: 10/01/24 Order Info: [id number] - CBCD Result Comment: IG% - Immature Granulocytes (promyelocytes, myelocytes and metamyelocytes) > 1% indicates that a LEFT SHIFT is Present. Performed By: #### L 100.0100, L501.5200, L500.4050, L3110.0500, L500.4100 #### [facility] [address] [place], [address] Lymphocytes/100 WBC (Bld) 21.6 % Normal 19-41 [facility] Comment on above: Order Comment: Order Date: 10/01/24 Order Info: 0184-1 - CBCD Performed By: #### L 100.0100, L501.5200, L500.4050, L3110.0500, L500.4100 #### [facility] [address] [place], [address] MCH (RBC) [Entitic mass] 31.9 pg Normal 27.0-32.0 [facility] Comment on above: Order Comment: Order Date: 10/01/24 Order Info: [id number] - CBCD Performed By: #### L 100.0100, L501.5200, L500.4050, L3110.0500, L500.4100 #### [facility] [address] [place], [address] MCHC (RBC) [Mass/Vol] 33.1 g/dL Normal 32-36 [facility] Comment on above: Order Comment: Order Date: 10/01/24 Order Info: 0184-1 - CBCD Performed By: #### L 100.0100, L501.5200, L500.4050, L3110.0500, L500.4100 #### [facility] [address] [place], [address] MCV (RBC) [Entitic vol] 96.5 fL High 80-94 [facility] Comment on above: Order Comment: Order Date: 10/01/24 Order Info: 0184-1 - CBCD Performed By: #### L 100.0100, L501.5200, L500.4050, L3110.0500, L500.4100 #### [facility] [address] [place], [address] Monocytes/100 WBC (Bld) 8.2 % Normal 0-10 [facility] Comment on above: Order Comment: Order Date: 10/01/24 Order Info: 0184-1 - CBCD Performed By: #### L 100.0100, L501.5200, L500.4050, L3110.0500, L500.4100 #### [facility] [address] [place], [address] Neutrophils/100 WBC (Bld) 67.6 % Normal 47-70 [facility] Comment on above: Order Comment: Order Date: 10/01/24 Order Info: 0184-1 - CBCD Performed By: #### L 100.0100, L501.5200, L500.4050, L3110.0500, L500.4100 #### [facility] [address] [place], [address] Nucleated RBC (Bld) [#/Vol] 0 10*3/uL Normal 0-5 [facility] Comment on above: Order Comment: Order Date: 10/01/24 Order Info: [id number] - CBCD Performed By: #### L 100.0100, L501.5200, L500.4050, L3110.0500, L500.4100 #### [facility] [address] [place], [address] Platelet mean volume (Bld) [Entitic vol] 11.4 fL Normal 6.2-12.0 [facility] Comment on above: Order Comment: Order Date: 10/01/24 Order Info: [id number] - CBCD Performed By: #### L 100.0100, L501.5200, L500.4050, L3110.0500, L500.4100 #### [facility] [address] [place], [address] Platelets (Bld) [#/Vol] 121 10*3/uL Low 150-450 [facility] Comment on above: Order Comment: Order Date: 10/01/24 Order Info: [id number]- - CBCD Performed By: #### L 100.0100, L501.5200, L500.4050, L3110.0500, L500.4100 #### [facility] [address] [place], [address] RBC (Bld) [#/Vol] 4.23 10*6/uL Low 4.6-6.2 [facility] Comment on above: Order Comment: Order Date: 10/01/24 Order Info: [id number] - CBCD Performed By: #### L 100.0100, L501.5200, L500.4050, L3110.0500, L500.4100 #### [facility] [address] [place], [address] RDW SD 45.1 fl High 35.1-43.9 [facility] Comment on above: Order Comment: Order Date: 10/01/24 Order Info: [id number] - CBCD Performed By: #### L 100.0100, L501.5200, L500.4050, L3110.0500, L500.4100 #### [facility] [address] [place], [address] WBC (Bld) [#/Vol] 5.5 10*3/uL Normal 4.4-11.0 [facility] Comment on above: Order Comment: Order Date: 10/01/24 Order Info: [id number] - CBCD Performed By: #### L 100.0100, L501.5200, L500.4050, L3110.0500, L500.4100 #### [facility] [address] [place], [address] Calculated very low density lipoprotein (VLDL) cholesterol measurementOrdered By: Rangel Cruz on 10-01-2024 Calculated very low density lipoprotein (VLDL) cholesterol measurement 12 mg/dL 5-40 [facility] VLDL Cholesterol 12 mg/dL 5-40 [facility] Carbon dioxide, total [Moles /volume] in Central venous bloodOrdered By: Rangel Cruz on 10-01-2024 CO2 [Moles/Vol] 24.3 mmol/L 21.0-32.0 [facility] Chloride assayOrdered By: Aliya Cruz on 10-01-2024 Chloride [Moles/Vol] 104 mmol/L 98-108 [facility] Comprehensive Metabolic Prof ilon 10-01-2024 Albumin [Mass/Vol] 4.3 g/dL Normal 3.4-4.8 [facility] Comment on above: Order Comment: Order Date: 10/01/24 Order Info: [id number] - CMP Order Info: [id number] - LIPID Order Info: [id number] - MG Performed By: #### L 100.0100, L501.5200, L500.4050, L3110.0500, L500.4100 #### [facility] [address] [place], [address] Albumin/Globulin [Mass ratio] 1.6 {ratio} Normal 0.9-2.4 [facility] Comment on above: Order Comment: Order Date: 10/01/24 Order Info: [id number] - CMP Order Info: [id number] - LIPID Order Info: [id number] - MG Performed By: #### L 100.0100, L501.5200, L500.4050, L3110.0500, L500.4100 #### [facility] [address] [place], [address] ALK PHOS 61 U/L Normal 40-129 [facility] Comment on above: Order Comment: Order Date: 10/01/24 Order Info: [id number] - CMP Order Info: [id number] - LIPID Order Info: [id number] - MG Performed By: #### L 100.0100, L501.5200, L500.4050, L3110.0500, L500.4100 #### [facility] [address] [place], [address] ALT [Catalytic activity/Vol] 13 U/L Normal <=46 [facility] Comment on above: Order Comment: Order Date: 10/01/24 Order Info: [id number] - CMP Order Info: [id number] - LIPID Order Info: [id number] - MG Performed By: #### L 100.0100, L501.5200, L500.4050, L3110.0500, L500.4100 #### [facility] [address] [place], [address] AST [Catalytic activity/Vol] 22 U/L Normal <=37 [facility] Comment on above: Order Comment: Order Date: 10/01/24 Order Info: [id number] - CMP Order Info: [id number] - LIPID Order Info: [id number] - MG Performed By: #### L 100.0100, L501.5200, L500.4050, L3110.0500, L500.4100 #### [facility] [address] [place], [address] Bilirubin [Mass/Vol] 0.59 mg/dL Normal 0.00-1.30 [facility] Comment on above: Order Comment: Order Date: 10/01/24 Order Info: [id number] - CMP Order Info: [id number] - LIPID Order Info: [id number] - MG Performed By: #### L 100.0100, L501.5200, L500.4050, L3110.0500, L500.4100 #### [facility] [address] [place], [address] BUN/CRE 21.0 RATIO High 10-20 [facility] Comment on above: Order Comment: Order Date: 10/01/24 Order Info: [id number] - CMP Order Info: [id number] - LIPID Order Info: [id number] - MG Performed By: #### L 100.0100, L501.5200, L500.4050, L3110.0500, L500.4100 #### [facility] [address] [place], [address] Calcium [Mass/Vol] 9.5 mg/dL Normal 7.6-11.0 [facility] Comment on above: Order Comment: Order Date: 10/01/24 Order Info: [id number] - CMP Order Info: [id number] - LIPID Order Info: [id number] - MG Performed By: #### L 100.0100, L501.5200, L500.4050, L3110.0500, L500.4100 #### [facility] [address] [place], [address] Chloride [Moles/Vol] 104 mmol/L Normal 98-108 [facility] Comment on above: Order Comment: Order Date: 10/01/24 Order Info: [id number] - CMP Order Info: [id number] - LIPID Order Info: [id number] - MG Performed By: #### L 100.0100, L501.5200, L500.4050, L3110.0500, L500.4100 #### [facility] [address] [place], [address] CO2 [Moles/Vol] 24.3 mmol/L Normal 21.0-32.0 [facility] Comment on above: Order Comment: Order Date: 10/01/24 Order Info: [id number]- - CMP Order Info: [id number] - LIPID Order Info: [id number] - MG Performed By: #### L 100.0100, L501.5200, L500.4050, L3110.0500, L500.4100 #### [facility] [address] [place], [place], [address] Creatinine [Mass/Vol] 1.19 mg/dL Normal 0.70-1.20 [facility] Comment on above: Order Comment: Order Date: 10/01/24 Order Info: [id number]- - CMP Order Info: [id number] - LIPID Order Info: [id number] - MG Performed By: #### L 100.0100, L501.5200, L500.4050, L3110.0500, L500.4100 #### [facility] [address] [place], [address] GAP 12 Normal 5-15 [facility] Comment on above: Order Comment: Order Date: 10/01/24 Order Info: [id number]- - CMP Order Info: [id number] - LIPID Order Info: [id number] - MG Performed By: #### L 100.0100, L501.5200, L500.4050, L3110.0500, L500.4100 #### [facility] [address] [place], [address] GFR/1.73 sq M.predicted among non-blacks MDRD (S/P/Bld) [Vol rate/Area] 65 mL/min/{1.73_m2} Normal >60 [facility] Comment on above: Order Comment: Order Date: 10/01/24 Order Info: [id number] - CMP Order Info: [id number] - LIPID Order Info: [id number] - MG Result Comment: mL/m in/1.73m2 CKD-EPI Creatinine Equation (2020) Performed By: #### L 100.0100, L501.5200, L500.4050, L3110.0500, L500.4100 #### [facility] [address] [place], [address] Globulin (S) [Mass/Vol] 2.6 g/dL Normal 2.2-4.2 [facility] Comment on above: Order Comment: Order Date: 10/01/24 Order Info: [id number] - CMP Order Info: [id number] - LIPID Order Info: [id number] - MG Performed By: #### L 100.0100, L501.5200, L500.4050, L3110.0500, L500.4100 #### [facility] [address] [place], [address] Glucose [Mass/Vol] 94 mg/dL Normal 70-99 [facility] Comment on above: Order Comment: Order Date: 10/01/24 Order Info: [id number] - CMP Order Info: [id number] - LIPID Order Info: [id number] - MG Performed By: #### L 100.0100, L501.5200, L500.4050, L3110.0500, L500.4100 #### [facility] [address] [place], [address] Potassium [Moles/Vol] 3.8 mmol/L Normal 3.3-5.1 [facility] Comment on above: Order Comment: Order Date: 10/01/24 Order Info: [id number] - CMP Order Info: [id number] - LIPID Order Info: [id number] - MG Performed By: #### L 100.0100, L501.5200, L500.4050, L3110.0500, L500.4100 #### [facility] [address] [place], [address] Sodium [Moles/Vol] 140 mmol/L Normal 133-145 [facility] Comment on above: Order Comment: Order Date: 10/01/24 Order Info: [id number] - CMP Order Info: [id number] - LIPID Order Info: [id number] - MG Performed By: #### L 100.0100, L501.5200, L500.4050, L3110.0500, L500.4100 #### [facility] [address] [facility] [place], [address] T PROT 7.0 g/dL Normal 5.9-8.4 [facility] Comment on above: Order Comment: Order Date: 10/01/24 Order Info: [id number] - CMP Order Info: [id number] - LIPID Order Info: [id number] - MG Performed By: #### L 100.0100, L501.5200, L500.4050, L3110.0500, L500.4100 #### [facility] [address] [place], [address] Urea nitrogen [Mass/Vol] 25 mg/dL High 4-19 [facility] Comment on above: Order Comment: Order Date: 10/01/24 Order Info: [id number] - CMP Order Info: [id number] - LIPID Order Info: [id number] - MG Performed By: #### L 100.0100, L501.5200, L500.4050, L3110.0500, L500.4100 #### [facility] [address] [place], [address] Eosinophil percentageOrdered By: Rangel Cruz on 10-01-2024 Eosinophils/100 WBC (Bld) 1.1 % 0-5 [facility] Epithelial cells.squamous LM Ql (Urine sed)Ordered By: Rangel Cruz on 10-01-2024 Epithelial cells.squamous LM.HPF (Urine sed) [#/Area] 0 /[HPF] 0-5 [facility] Erythrocyte distribution wid th ratioOrdered By: Rangel Cruz on 10-01-2024 Erythrocyte distribution width (RBC) [Ratio] 12.9 % 11.6-14.6 [facility] Erythrocyte distribution wid th standard deviationOrdered By: Rangel Cruz on 10-01-2024 Erythrocyte distribution width (RBC) [Entitic vol] 45.1 fL High 35.1-43.9 [facility] Erythrocyte distribution width (RBC) [Ratio] 45.1 fl High 35.1-43.9 [facility] Free PSA/Total PSA [Mass fra ction]Ordered By: Rangel Cruz on 10-01-2024 % Free Prostate Specific Ag Calc 33.8 % . [facility] Comment on above: The table below list s the probability of prostate cancer formen with non-suspicious SHARI results and total PSA between4 and 10 ng/mL, by patient age (Bozena et al, ITZEL 1998,279:1542). % Free PSA 50-64 yr 65-75 yr 0.00-10.00% 56% 55% 10.01-15.00% 24% 35% 15.01-20.00% 17% 23% 20.01-25.00% 10% 20% >25.00% 5% 9%Please note: Bozena et al did not make specific recommendations regarding the use of percent free PSA for any other population of men.Performed at: [address] [id number] Director: Earnest Flores PhD, Phone: [phone] Free prostate specific antig en (PSA) measurementOrdered By: Rangel Cruz on 10-01-2024 Free Prostate Specific Antigen 1.53 ng/mL N/A [facility] Comment on above: Amanda ECLIA methodol ogy. GFR/1.73 sq M.predicted emelia g non-blacks MDRD (S/P/Bld) [Vol rate/Area]Ordered By: Rangel Cruz on 10-01-2024 Estimated GFR (MDRD) Non-Af Amer 65 >60 [facility] Comment on above: mL/min/1.73m2 CKD-EP I Creatinine Equation (2020) Glomerular filtration rate ( GFR) estimation/1.73 sq m using serum, plasma, or whole bOrdered By: Rangel Cruz on 10-01-2024 GFR/1.73 sq M.predicted among non-blacks MDRD (S/P/Bld) [Vol rate/Area] 65 mL/min/{1.73_m2} >60 [facility] Comment on above: mL/min/1.73m2 CKD-EP I Creatinine Equation (2020) Glucose Ql (U)Ordered By: Aliya Cruz on 10-01-2024 Urine Glucose (UA) Normal mg/dl Normal [facility] Hematocrit Auto (Bld) [Volum e fraction]Ordered By: Rangel Curz on 10-01-2024 Hematocrit (Bld) [Volume fraction] 40.8 % 40-54 [facility] Hemoglobin measurementOrdere d By: Rangel Cruz on 10-01-2024 Hemoglobin (Bld) [Mass/Vol] 13.5 g/dL 13.0-16.5 [facility] Immature granulocytes/100 WB C Auto (Bld)Ordered By: Rangel Cruz on 10-01-2024 Immature granulocytes/100 WBC (Bld) 0.400 % 0.0-0.9 [facility] Comment on above: IG% - Immature Granu locytes (promyelocytes, myelocytes and metamyelocytes) > 1% indicates that a LEFT SHIFT is Present. Ketones Test strip Ql (U)Ord ered By: Rangel Cruz on 10-01-2024 Ketones Ql (U) Negative Negative [facility] LDL calc ser/plasOrdered By: Rangel Cruz on 10-01-2024 Cholesterol in LDL [Mass/Vol] 80 mg/dL [facility] Comment on above: Yarqzwrioi=014-019 m g/dL & Higher Sxux=224 mg/dL or greater LDL Cholesterol, Calculated 80 mg/dL [facility] Comment on above: Eeawimyztp=146-250 m g/dL & Higher Wtux=076 mg/dL or greater Laboratory - Chemistry and C hemistry - challengeOrdered By: Rangel Cruz on 10-01-2024 AST [Catalytic activity/Vol] 22 U/L <38 [facility] Lipid Profileon 10-01-2024 CHOL:HDL 2.76 Normal [facility] Comment on above: Order Comment: Order Date: 10/01/24 Order Info: [id number] - CMP Order Info: [id number] - LIPID Order Info: - MG Performed By: #### L 100.0100, L501.5200, L500.4050, L3110.0500, L500.4100 #### [facility] [address] [place], [address] Cholesterol [Mass/Vol] 144 mg/dL Normal <=200 [facility] Comment on above: Order Comment: Order Date: 10/01/24 Order Info: [id number] - CMP Order Info: [id number] - LIPID Order Info: - MG Result Comment: Chol esterol level, Desirable <200 mg/dL Borderline high cholesterol 200-239 mg/dL High cholesterol >=240 mg/dL Recommendations of the NCEP Adult Treatment Panel for the following risk-cutoff thresholds for the [place] population. Performed By: #### L 100.0100, L501.5200, L500.4050, L3110.0500, L500.4100 #### [facility] [address] [place], [address] Cholesterol in HDL [Mass/Vol] 52 mg/dL Normal [facility] Comment on above: Order Comment: Order Date: 10/01/24 Order Info: [id number] - CMP Order Info: [id number] - LIPID Order Info: - MG Result Comment: Mary onal Cholesterol Education Program (NCEP) guidelines: <40 mg/dL: Low HDL-cholesterol (major risk factor for CHD) >= 60 mg/dL: High HDL-cholesterol (negative risk factor for CHD) HDL-cholesterol is affected by a number of factors, e.g. smoking, exercise, hormones, sex and age. Performed By: #### L 100.0100, L501.5200, L500.4050, L3110.0500, L500.4100 #### [facility] [address] [place], [address] Cholesterol in LDL [Mass/Vol] 80 mg/dL Normal [facility] Comment on above: Order Comment: Order Date: 10/01/24 Order Info: [id number] - CMP Order Info: [id number] - LIPID Order Info: [id number] - MG Result Comment: Bord brqleq=771-875 mg/dL Higher Fuhx=148 mg/dL or greater Performed By: #### L 100.0100, L501.5200, L500.4050, L3110.0500, L500.4100 #### [facility] [address] [place], [address] Cholesterol in VLDL [Mass/Vol] 12 mg/dL Normal 5-40 [facility] Comment on above: Order Comment: Order Date: 10/01/24 Order Info: [id number] - CMP Order Info: [id number] - LIPID Order Info: [id number] - MG Performed By: #### L 100.0100, L501.5200, L500.4050, L3110.0500, L500.4100 #### [facility] [address] [place], [address] Triglyceride [Mass/Vol] 59 mg/dL Normal [facility] Comment on above: Order Comment: Order Date: 10/01/24 Order Info: [id number] - CMP Order Info: [id number] - LIPID Order Info: [id number] - MG Result Comment: The drugs N-Acetylcysteine and Metamizole may falsely depress this assay. Normal range: <150 mg/dL Borderline High: 150-199 mg/dL High: 200-499 mg/dL Very High: >500 mg/dL Performed By: #### L 100.0100, L501.5200, L500.4050, L3110.0500, L500.4100 #### [facility] [address] [place], [address] Lymphocytes Auto (Unsp spec) [#/Vol]Ordered By: Rangel Cruz on 10-01-2024 Lymphocytes (Bld) [#/Vol] 1.19 10*3/uL 0.83-4.51 [facility] Lymphocytes/100 WBC Auto (Un sp spec)Ordered By: Rangel Cruz on 10-01-2024 Lymphocytes/100 WBC (Bld) 21.6 % 19-41 [facility] MCV (mean corpuscular volume ) determinationOrdered By: Rangel Cruz on 10-01-2024 MCV (RBC) [Entitic vol] 96.5 fL High 80-94 [facility] Magnesiumon 10-01-2024 Magnesium [Mass/Vol] 2.1 mg/dL Normal 1.5-2.2 [facility] Comment on above: Order Comment: Order Date: 10/01/24 Order Info: [id number] - CMP Order Info: [id number] - LIPID Order Info: [id number] - MG Performed By: #### L 100.0100, L501.5200, L500.4050, L3110.0500, L500.4100 #### [facility] [address] [place] [address]. [place], [address] Magnesium (Unsp spec) [Mass/ Vol]Ordered By: Rangel Cruz on 10-01-2024 Magnesium [Mass/Vol] 2.1 mg/dL 1.5-2.2 [facility] Magnesium measurement (mass/ volume)Ordered By: Rangel Cruz on 10-01-2024 Magnesium (Unsp spec) [Mass/Vol] 2.1 mg/dL 1.5-2.2 [facility] Mean corpuscular hemoglobin (MCH) determinationOrdered By: Rangel Cruz on 10-01-2024 MCH (RBC) [Entitic mass] 31.9 pg 27.0-32.0 [facility] Mean corpuscular hemoglobin concentration (MCHC) determinationOrdered By: Rangel Cruz on 10-01-2024 MCHC (RBC) [Mass/Vol] 33.1 g/dL 32-36 [facility] Mean platelet volume determi nationOrdered By: Rangel Cruz on 10-01-2024 Platelet mean volume (Bld) [Entitic vol] 11.4 fL 6.2-12.0 [facility] Microscopic analysis of urin e for red blood cells (RBC)Ordered By: Rangel Cruz on 10-01-2024 Microscopic analysis of urine for red blood cells (RBC) 0 SEEN /hpf 0-5 [facility] Urine RBC 0 SEEN /hpf 0-5 [facility] Monocyte percentageOrdered B y: Rangel Cruz on 10-01-2024 Monocytes/100 WBC (Bld) 8.2 % 0-10 [facility] Mucus LM Ql (Urine sed)Order ed By: Rangel Cruz on 10-01-2024 Mucus Ql (Urine sed) 0 SEEN /hpf [facility] Neutrophil percentageOrdered By: Rangel Cruz on 10-01-2024 Neutrophils/100 WBC (Bld) 67.6 % 47-70 [facility] Nitrite Test strip Ql (U)Ord ered By: Rangel Cruz on 10-01-2024 Nitrite Ql (U) Negative Negative [facility] Nucleated red blood cell per centageOrdered By: Rangel Cruz on 10-01-2024 Nucleated RBC/100 WBC (Bld) [Ratio] 0 % 0-5 [facility] PSA, totalOrdered By: Rangel st on 10-01-2024 Prostate Specific Ag, Ultra-Sensitv 4.530 ng/mL High 0.000-4.000 [facility] Comment on above: Amanda ECLIA methodol ogy.According to the [place] [employer], Serum PSAshould decrease and remain at undetectable levels afterradical prostatectomy. The AUA defines biochemicalrecurrence as an initial PSA value 0.200 ng/mL or greaterfollowed by a subsequent confirmatory PSA value 0.200 ng/mLor greater. Values obtained with different assay methods orkits cannot be used interchangeably. Results cannot beinterpreted as absolute evidence of the presence or absenceof malignant disease. Platelet countOrdered By: Aliya Cruz on 10-01-2024 Platelets (Bld) [#/Vol] 121 10*3/uL Low 150-450 [facility] Potassium (Unsp spec) [Mass/ Vol]Ordered By: Rangel Cruz on 10-01-2024 Potassium [Moles/Vol] 3.8 mmol/L 3.3-5.1 [facility] Potassium measurement (mass/ volume)Ordered By: Rangel Cruz on 10-01-2024 Potassium (Unsp spec) [Mass/Vol] 3.8 mmol/L 3.3-5.1 [facility] Protein Test strip Ql (U)Ord ered By: Rangel Cruz on 10-01-2024 Protein Ql (U) 15 mg/dl High Negative [facility] RBC Auto (Bld) [#/Vol]Ordere d By: Rangel Cruz on 10-01-2024 RBC (Bld) [#/Vol] 4.23 10*6/uL Low 4.6-6.2 [facility] Screening total cholesterol/ high density lipoprotein (HDL) cholesterol ratioOrdered By: Rangel Cruz on 10-01-2024 Cholesterol.total/Jeanie sterol in HDL [Mass ratio] 2.76 {ratio} [facility] Serum creatinine measurement (mass/volume)Ordered By: Rangel Cruz on 10-01-2024 Creatinine [Mass/Vol] 1.19 mg/dL 0.70-1.20 [facility] Serum globulin measurementOr dered By: Rangel Cruz on 10-01-2024 Globulin (S) [Mass/Vol] 2.6 g/dL 2.2-4.2 [facility] Serum glucose measurement (m ass/volume)Ordered By: Rangel Cruz on 10-01-2024 Glucose [Mass/Vol] 94 mg/dL 70-99 [facility] Serum or plasma alanine waterman otransferase (ALT) measurementOrdered By: Rangel Cruz on 10-01-2024 ALT [Catalytic activity/Vol] 13 U/L <47 [facility] Serum or plasma albumin nick urement (mass/volume)Ordered By: Rangel Cruz on 10-01-2024 Albumin [Mass/Vol] 4.3 g/dL 3.4-4.8 [facility] Serum or plasma albumin/glob ulin mass ratioOrdered By: Rangel Cruz on 10-01-2024 Albumin/Globulin [Mass ratio] 1.6 {ratio} 0.9-2.4 [facility] Serum or plasma alkaline wilfred sphatase measurementOrdered By: Rangel Cruz on 10-01-2024 ALP [Catalytic activity/Vol] 61 U/L 40-129 [facility] Serum or plasma calcium nick urement (mass/volume)Ordered By: Rangel Cruz on 10-01-2024 Calcium [Mass/Vol] 9.5 mg/dL 7.6-11.0 [facility] Serum or plasma cholesterol in HDL measurement (mass/volume)Ordered By: Rangel Cruz on 10-01-2024 Cholesterol in HDL [Mass/Vol] 52 mg/dL >40 [facility] Comment on above: National Cholesterol Education Program (NCEP) guidelines:<40 mg/dL: Low HDL-cholesterol (major risk factor for CHD)>= 60 mg/dL: High HDL-cholesterol (negative risk factor for CHD)HDL-cholesterol is affected by a number of factors, e.g. smoking, exercise, hormones, sex and age. Serum or plasma cholesterol measurement (mass/volume)Ordered By: Rangel Cruz on 10-01-2024 Cholesterol [Mass/Vol] 144 mg/dL <201 [facility] Comment on above: Cholesterol level, D esirable <200 mg/dLBorderline high cholesterol 200-239 mg/dLHigh cholesterol >=240 mg/dLRecommendations of the NCEP Adult Treatment Panel for the following risk-cutoff thresholds for the [place] population. Serum or plasma free prostat e specific antigen (PSA)/total PSA mass ratioOrdered By: Rangel Cruz on 10-01-2024 Free PSA/Total PSA [Mass fraction] 33.8 % . [facility] Comment on above: The table below list s the probability of prostate cancer formen with non-suspicious SHARI results and total PSA between4 and 10 ng/mL, by patient age (Bozena et al, ITZEL 1998,279:1542). % Free PSA 50-64 yr 65-75 yr 0.00-10.00% 56% 55% 10.01-15.00% 24% 35% 15.01-20.00% 17% 23% 20.01-25.00% 10% 20% >25.00% 5% 9%Please note: Bozena et al did not make specific recommendations regarding the use of percent free PSA for any other population of men.Performed at: [address] [id number] Director: Earnest Flores PhD, Phone: [phone] Serum or plasma urea nitroge n measurement (mass/volume)Ordered By: Rangel Cruz on 10-01-2024 Urea nitrogen [Mass/Vol] 25 mg/dL High 4- [facility] Sodium levelOrdered By: Rangel Cruz on 10-01-2024 Sodium [Moles/Vol] 140 mmol/L 133-145 [facility] Squamous epithelial cells de tection in urine sediment by light microscopyOrdered By: Rangel Cruz on 10-01-2024 Epithelial cells.squamous LM Ql (Urine sed) 0 SEEN /hpf 0-5 [facility] Total proteinOrdered By: James Cruz on 10-01-2024 Protein [Mass/Vol] 7.0 g/dL 5.9-8.4 [facility] Triglycerides measurementOrd ered By: Rangel Cruz on 10-01-2024 Triglyceride [Mass/Vol] 59 mg/dL <199 [facility] Comment on above: The drugs N-Acetylcy steine and Metamizole may falsely depress this assay. Normal range: <150 mg/dLBorderline High: 150-199 mg/dLHigh: 200-499 mg/dLVery High: >500 mg/dL Urinalysis, Completeon 10-01 RBC 0 SEEN Normal 0-5 [facility] Comment on above: Order Comment: CLEAN CATCH Performed By: #### L 400.0001 #### [facility] [address] [place] [address], [address] Urine blood detectionOrdered By: Rangel Cruz on 10-01-2024 Urine Occult Blood 25 /ul High Negative [facility] Urine clarityOrdered By: James Cruz on 10-01-2024 Clarity (U) Sl. Cloudy Clear [facility] Urine color determinationOrd ered By: Rangel Cruz on 10-01-2024 Color (U) Yellow Yellow [facility] Urine glucose detectionOrder ed By: Rangel Cruz on 10-01-2024 Glucose Ql (U) Normal mg/dl Normal [facility] Urine leukocyte esterase det ection by dipstickOrdered By: Rangel Cruz on 10-01-2024 Leukocyte esterase Test strip Ql (U) 500 /ul High Negative [facility] Urine pHOrdered By: Rangel gamble on 10-01-2024 pH (U) 6.0 [pH] 5.0 - 8.0 [facility] Urine sediment bacteria coun t by microscopy (number/high power field)Ordered By: Rangel Cruz on 10-01-2024 Bacteria LM.HPF (Urine sed) [#/Area] 0 /[HPF] None Seen [facility] Urine specific gravity measu rementOrdered By: Rangel Cruz on 10-01-2024 Specific gravity (U) [Rel density] 1.010 1.002-1.030 [facility] Urine urobilinogen measureme ntOrdered By: Rangel Cruz on 10-01-2024 Urobilinogen Ql (U) Normal mg/dl Normal [facility] Urobilinogen Ql (U)Ordered B y: Rangel Cruz on 10-01-2024 Urine Urobilinogen Normal mg/dl Normal [facility] White blood cell (WBC) count Ordered By: Rangel Cruz on 10-01-2024 WBC (Bld) [#/Vol] 5.5 10*3/uL 4.4-11.0 [facility] White blood cell countOrdere d By: Rangel Cruz on 10-01-2024 Urine WBC >100 SEEN /hpf 0-5 [facility] White blood cell count >100 SEEN /hpf 0-5 [facility] PSA,Total - Annual Screenon 04-02-2024 PSA,TOT SCREEN 4.48 ng/mL High 0.00-4.00 [facility] Comment on above: Order Comment: Order Date: 04/02/24 Order Info: [id number] - PSA Result Comment: This test was performed using the TPSA assay method for the [employer] chemistry system. Values obtained with different assay methods cannot be used interchangably. When changing PSA assays in the course of monitoring a patient, additional sequential testing should be carried out to confirm baseline values. Performed By: #### L 501.9910 #### [facility] [address] [place], [address] Absolute lymphocyte countOrd ered By: Rangel Cruz on 09-25-2023 Lymphocytes Auto (Unsp spec) [#/Vol] 0.86 10*3/uL 0.83-4.51 [facility] Automated lymphocyte count a s percentage of total leukocytesOrdered By: Rangel Cruz on 09-25-2023 Lymphocytes/100 WBC Auto (Unsp spec) 23.7 % 19-41 [facility] Basophil percentageOrdered B y: Rangel Cruz on 09-25-2023 Basophil percentage 10-25 SEEN /hpf 0-5 [facility] Basophils/100 WBC (Bld) 1.1 % 0-1 [facility] Bilirubin [Mass/Vol] 0.70 mg/dL 0.20-1.00 [facility] Comment on above: For patients on eltr ombopag therapy, use of Dimension [employer] TBIL is not recommended. Chloride [Moles/Vol] 106 mmol/L 98-107 [facility] Cholesterol [Mass/Vol] 132 mg/dL <200 [facility] Comment on above: <200 mg/dL Desirable 200-240 mg/dL Borderline >240 mg/dL High Risk Eosinophils/100 WBC (Bld) 1.9 % 0-5 [facility] Glucose [Mass/Vol] 95 mg/dL 74-106 [facility] Hemoglobin (Bld) [Mass/Vol] 13.0 g/dL 13.0-16.5 [facility] Monocytes/100 WBC (Bld) 7.4 % 0-10 [facility] Neutrophils (Bld) [#/Vol] 2.4 10*3/uL 2.0-7.7 [facility] Neutrophils/100 WBC (Bld) 65.6 % 47-70 [facility] Potassium [Moles/Vol] 3.9 mmol/L 3.5-5.1 [facility] Protein [Mass/Vol] 7.0 g/dL 6.4-8.2 [facility] Sodium [Moles/Vol] 140 mmol/L 136-145 [facility] Triglyceride [Mass/Vol] 67 mg/dL <199 [facility] Comment on above: The drugs N-Acetylcy steine and Metamizole may falsely depress this assay.Serum Triglycerides Reference Interval Normal <150 mg/dL Borderline high 150 - 199 mg/dL High 200 - 499 mg/dL Very High > or = 500 mg/dL WBC (Bld) [#/Vol] 3.6 10*3/uL 4.4-11.0 [facility] Bilirubin Test strip Ql (U)O rdered By: Rangel Cruz on 09-25-2023 Bilirubin Ql (U) Negative Negative [facility] Determination of erythrocyte mean corpuscular volume (MCV)Ordered By: Rangel Cruz on 09-25-2023 MCV (RBC) [Entitic vol] 95.2 fL 80-94 [facility] Erythrocyte distribution wid th ratioOrdered By: Rangel Cruz on 09-25-2023 Erythrocyte distribution width (RBC) [Ratio] 12.6 % 11.6-14.6 [facility] Erythrocyte distribution wid th standard deviationOrdered By: Rangel Cruz on 09-25-2023 Erythrocyte distribution width (RBC) [Entitic vol] 43.9 fL 35.1-43.9 [facility] Hematocrit Auto (Bld) [Volum e fraction]Ordered By: Rangel Cruz on 09-25-2023 Hematocrit (Bld) [Volume fraction] 39.7 % 40-54 [facility] Immature granulocytes/100 WB C Auto (Bld)Ordered By: Rangel Cruz on 09-25-2023 Immature granulocytes/100 WBC (Bld) 0.300 % 0.0-0.9 [facility] Comment on above: IG% - Immature Granu locytes (promyelocytes, myelocytes and metamyelocytes) > 1% indicates that a LEFT SHIFT is Present. Ketones Test strip Ql (U)Ord ered By: Rangel Cruz on 09-25-2023 Ketones Ql (U) Negative Negative [facility] - Chemistry and C hemistry - challengeOrdered By: Rangel Cruz on 09-25-2023 Albumin/Globulin [Mass ratio] 1.2 {ratio} 0.9-2.4 [facility] ALP [Catalytic activity/Vol] 65 U/L 45-117 [facility] ALT [Catalytic activity/Vol] 25 U/L 16-61 [facility] Cholesterol in HDL [Mass/Vol] 45 mg/dL >40 [facility] Comment on above: The drugs N-Acetylcy steine and Metamizole may falsely depress this assay. Reference Range HDL <40 mg/dL Low HDL Cholesterol HDL >or= 60 mg/dL High HDL Cholesterol Cholesterol in LDL [Mass/Vol] 74 mg/dL 0-130 [facility] CO2 [Moles/Vol] 30.0 mmol/L 21.0-32.0 [facility] Globulin (S) [Mass/Vol] 3.2 g/dL 2.2-4.2 [facility] Magnesium [Mass/Vol] 2.2 mg/dL 1.6-2.6 [facility] Urea nitrogen/Creatinine [Mass ratio] 15.3 mg/mg 10-20 [facility] - Hematology and Cell countsOrdered By: Rangel Cruz on 09-25-2023 MCH (RBC) [Entitic mass] 31.2 pg 27.0-32.0 [facility] MCHC (RBC) [Mass/Vol] 32.7 g/dL 32-36 [facility] Nucleated RBC/100 WBC (Bld) [Ratio] 0 % 0-5 [facility] Platelet mean volume (Bld) [Entitic vol] 11.0 fL 6.2-12.0 [facility] Platelets (Bld) [#/Vol] 153 10*3/uL 150-450 [facility] Mucus LM Ql (Urine sed)Order ed By: Rangel Cruz on 09-25-2023 Mucus Ql (Urine sed) 0 SEEN /hpf [facility] Nitrite Test strip Ql (U)Ord ered By: Rangel Cruz on 09-25-2023 Nitrite Ql (U) Negative Negative [facility] No Panel InformationOrdered By: Rangel Cruz on 09-25-2023 Estimated GFR (MDRD) Amer 74 mL/min >60 [facility] Comment on above: GFR Calc Estimated GFR (MDRD) Non-Af Amer 61 mL/min >60 [facility] Comment on above: Non- GFR Calc Urine RBC 0 SEEN /hpf 0-5 [facility] [facility] Cholesterol 13 mg/dL 5-40 [facility] Protein Test strip Ql (U)Ord ered By: Rangel Cruz on 09-25-2023 Protein Ql (U) Negative Negative [facility] RBC Auto (Bld) [#/Vol]Ordere d By: Rangel Cruz on 09-25-2023 RBC (Bld) [#/Vol] 4.17 10*6/uL 4.6-6.2 [facility] Serum or plasma calcium nick urement (mass/volume)Ordered By: Rangel Cruz on 09-25-2023 Calcium [Mass/Vol] 9.3 mg/dL 8.5-10.1 [facility] Serum or plasma creatinine m easurement (mass/volume)Ordered By: Rangel Cruz on 09-25-2023 Creatinine [Mass/Vol] 1.24 mg/dL 0.70-1.30 [facility] Comment on above: The validity of the calculated GFR & GFRAA in patients over 70 years has not been determined. Clinical correlation is essential. Serum or plasma thyroid stim ulating hormone (TSH) measurement (units/volume)Ordered By: Rangel Cruz on 09-25-2023 TSH Qn 1.57 uIU/mL 0.358-3.74 [facility] Serum or plasma urea nitroge n measurement (mass/volume)Ordered By: Rangel Cruz on 09-25-2023 Urea nitrogen [Mass/Vol] 19 mg/dL 7-18 [facility] Squamous epithelial cells de tection in urine sediment by light microscopyOrdered By: Rangel Cruz on 09-25-2023 Epithelial cells.squamous LM Ql (Urine sed) 0-5 SEEN /hpf 0-5 [facility] Thin prep Papanicolaou smear with manual screeningOrdered By: Rangel Cruz on 09-25-2023 Thin prep Papanicolaou smear with manual screening 3.8 g/dL 3.2-5.0 [facility] Thin prep Papanicolaou smear with manual screening 23 U/L 15-37 [facility] Thin prep Papanicolaou smear with manual screening 4 5-15 [facility] Urine blood detectionOrdered By: Rangel Cruz on 09-25-2023 RBC Ql (U) Negative Negative [facility] Urine clarityOrdered By: James Cruz on 09-25-2023 Clarity (U) Clear Clear [facility] Urine color determinationOrd ered By: Rangel Cruz on 09-25-2023 Color (U) Yellow Yellow [facility] Urine glucose detectionOrder ed By: Rangel Cruz on 09-25-2023 Glucose Ql (U) Normal mg/dl Normal [facility] Urine leukocyte esterase det ection by dipstickOrdered By: Rangel Cruz on 09-25-2023 Leukocyte esterase Test strip Ql (U) 100 /ul Negative [facility] Urine pHOrdered By: Rangel gamble on 09-25-2023 pH (U) 7.0 [pH] 5.0 - 8.0 [facility] Urine sediment bacteria coun t by microscopy (number/high power field)Ordered By: Rangel Cruz on 09-25-2023 Bacteria LM.HPF (Urine sed) [#/Area] 0 /[HPF] None Seen [facility] Urine specific gravity measu rementOrdered By: Rangel Cruz on 09-25-2023 Specific gravity (U) [Rel density] 1.005 1.002-1.030 [facility] Urine urobilinogen measureme ntOrdered By: Rangel Cruz on 09-25-2023 Urobilinogen Ql (U) Normal mg/dl Normal [facility] Absolute lymphocyte countOrd ered By: Rangel Cruz on 03-22-2023 Lymphocytes Auto (Unsp spec) [#/Vol] 0.95 10*3/uL 0.83-4.51 [facility] Basophil percentageOrdered B y: Rangel Cruz on 03-22-2023 Basophil percentage 5-10 SEEN /hpf 0-5 [facility] Basophils/100 WBC (Bld) 0.9 % 0-1 [facility] Bilirubin [Mass/Vol] 0.80 mg/dL 0.20-1.00 [facility] Comment on above: For patients on eltr ombopag therapy, use of [employer] TBIL is not recommended. Chloride [Moles/Vol] 107 mmol/L 98-107 [facility] Cholesterol [Mass/Vol] 122 mg/dL <200 [facility] Comment on above: <200 mg/dL Desirable 200-240 mg/dL Borderline >240 mg/dL High Risk Eosinophils/100 WBC (Bld) 2.8 % 0-5 [facility] Glucose [Mass/Vol] 98 mg/dL 74-106 [facility] Neutrophils (Bld) [#/Vol] 2.8 10*3/uL 2.0-7.7 [facility] Neutrophils/100 WBC (Bld) 66.4 % 47-70 [facility] Potassium [Moles/Vol] 3.8 mmol/L 3.5-5.1 [facility] Protein [Mass/Vol] 7.0 g/dL 6.4-8.2 [facility] Sodium [Moles/Vol] 140 mmol/L 136-145 [facility] Triglyceride [Mass/Vol] 68 mg/dL <199 [facility] Comment on above: The drugs N-Acetylcy steine and Metamizole may falsely depress this assay.Serum Triglycerides Reference Interval Normal <150 mg/dL Borderline high 150 - 199 mg/dL High 200 - 499 mg/dL Very High > or = 500 mg/dL WBC (Bld) [#/Vol] 4.3 10*3/uL 4.4-11.0 [facility] Bilirubin Test strip Ql (U)O rdered By: Rangel Cruz on 03-22-2023 Bilirubin Ql (U) Negative Negative [facility] Blood erythrocytes count (nu mber/volume)Ordered By: Rangel Cruz on 03-22-2023 RBC (Bld) [#/Vol] 4.27 10*6/uL 4.6-6.2 [facility] Blood hemoglobin measurement (mass/volume)Ordered By: Rangel Cruz on 03-22-2023 Hemoglobin (Bld) [Mass/Vol] 13.6 g/dL 13.0-16.5 [facility] Blood lymphocytes/100 leukoc ytesOrdered By: Rangel Cruz on 03-22-2023 Lymphocytes/100 WBC (Bld) 22.2 % 19-41 [facility] Blood monocytes/100 leukocyt esOrdered By: Rangel Cruz on 03-22-2023 Monocytes/100 WBC (Bld) 7.5 % 0-10 [facility] Blood platelet mean volumeOr dered By: Rangel Cruz on 03-22-2023 Platelet mean volume (Bld) [Entitic vol] 11.4 fL 6.2-12.0 [facility] Determination of erythrocyte mean corpuscular volume (MCV)Ordered By: Rangel Cruz on 03-22-2023 MCV (RBC) [Entitic vol] 96.0 fL 80-94 [facility] Hematocrit Auto (Bld) [Volum e fraction]Ordered By: Rangel Cruz on 03-22-2023 Hematocrit (Bld) [Volume fraction] 41.0 % 40-54 [facility] Ketones Test strip Ql (U)Ord ered By: Rangel Cruz on 03-22-2023 Ketones Ql (U) Negative Negative [facility] Laboratory - Chemistry and C hemistry - challengeOrdered By: Rangel Cruz on 03-22-2023 ALP [Catalytic activity/Vol] 56 U/L 45-117 [facility] ALT [Catalytic activity/Vol] 21 U/L 16-61 [facility] CO2 [Moles/Vol] 28.0 mmol/L 21.0-32.0 [facility] Globulin (S) [Mass/Vol] 3.1 g/dL 2.2-4.2 [facility] Urea nitrogen/Creatinine [Mass ratio] 16.8 mg/mg 10-20 [facility] - Hematology and Cell countsOrdered By: Rangel Cruz on 03-22-2023 Erythrocyte distribution width (RBC) [Entitic vol] 45.4 fL 35.1-43.9 [facility] Erythrocyte distribution width (RBC) [Ratio] 12.8 % 11.6-14.6 [facility] Immature granulocytes/100 WBC (Bld) 0.200 % 0.0-0.9 [facility] Comment on above: IG% - Immature Granu locytes (promyelocytes, myelocytes and metamyelocytes) > 1% indicates that a LEFT SHIFT is Present. MCH (RBC) [Entitic mass] 31.9 pg 27.0-32.0 [facility] Nucleated RBC/100 WBC (Bld) [Ratio] 0 % 0-5 [facility] MCHC Auto (RBC) [Mass/Vol]Or dered By: Rangel Cruz on 03-22-2023 MCHC (RBC) [Mass/Vol] 33.2 g/dL 32-36 [facility] Mucus LM Ql (Urine sed)Order ed By: Rangel Cruz on 03-22-2023 Mucus Ql (Urine sed) 0 SEEN /hpf [facility] Nitrite Test strip Ql (U)Ord ered By: Rangel Cruz on 03-22-2023 Nitrite Ql (U) Negative Negative [facility] No Panel InformationOrdered By: Rangel Cruz on 03-22-2023 Estimated GFR (MDRD) Amer 78 mL/min >60 [facility] Comment on above: GFR Calc Estimated GFR (MDRD) Non-Af Amer 64 mL/min >60 [facility] Comment on above: Non- GFR Calc Percent Free Prostate Specific Ag 1.24 ng/mL N/A [facility] Comment on above: [employer] ECLIA methodol ogy. Prostate Specific Ag, Ultra-Sensitv 3.660 ng/mL 0.000-4.000 [facility] Comment on above: Amanda ECLIA methodol ogy.According to the [place] [employer], Serum PSAshould decrease and remain at undetectable levels afterradical prostatectomy. The AUA defines biochemicalrecurrence as an initial PSA value 0.200 ng/mL or greaterfollowed by a subsequent confirmatory PSA value 0.200 ng/mLor greater. Values obtained with different assay methods orkits cannot be used interchangeably. Results cannot beinterpreted as absolute evidence of the presence or absenceof malignant disease. Platelets bldOrdered By: James Cruz on 03-22-2023 Platelets (Bld) [#/Vol] 126 10*3/uL 150-450 [facility] Protein Test strip Ql (U)Ord ered By: Rangel Cruz on 03-22-2023 Protein Ql (U) Negative Negative [facility] Serum or plasma albumin nick urement (mass/volume)Ordered By: Rangel Cruz on 03-22-2023 Albumin [Mass/Vol] 3.9 g/dL 3.2-5.0 [facility] Serum or plasma albumin/glob ulin mass ratioOrdered By: Rangel Cruz on 03-22-2023 Albumin/Globulin [Mass ratio] 1.3 {ratio} 0.9-2.4 [facility] Serum or plasma calcium nick urement (mass/volume)Ordered By: Rangel Cruz on 09-07-2023 Calcium [Mass/Vol] 9.2 mg/dL 8.5-10.1 [facility] Serum or plasma cholesterol in HDL measurement (mass/volume)Ordered By: Rangel Cruz on 03-22-2023 Cholesterol in HDL [Mass/Vol] 44 mg/dL >40 [facility] Comment on above: The drugs N-Acetylcy steine and Metamizole may falsely depress this assay. Reference Range HDL <40 mg/dL Low HDL Cholesterol HDL >or= 60 mg/dL High HDL Cholesterol Serum or plasma cholesterol in VLDL measurement (mass/volume)Ordered By: Rangel Cruz on 03-22-2023 Cholesterol in VLDL [Mass/Vol] 14 mg/dL 5-40 [facility] Serum or plasma creatinine m easurement (mass/volume)Ordered By: Rangel Cruz on 03-22-2023 Creatinine [Mass/Vol] 1.19 mg/dL 0.70-1.30 [facility] Comment on above: The validity of the calculated GFR & GFRAA in patients over 70 years has not been determined. Clinical correlation is essential. Serum or plasma free prostat e specific antigen/total prostate specific antigen ratioOrdered By: Rangel Cruz on 03-22-2023 Free PSA/Total PSA [Mass fraction] 33.9 % . [facility] Comment on above: The table below list s the probability of prostate cancer formen with non-suspicious SHARI results and total PSA between4 and 10 ng/mL, by patient age (Bozena et al, ITZEL 1998,279:1542). % Free PSA 50-64 yr 65-75 yr 0.00-10.00% 56% 55% 10.01-15.00% 24% 35% 15.01-20.00% 17% 23% 20.01-25.00% 10% 20% >25.00% 5% 9%Please note: Bozena et al did not make specific recommendations regarding the use of percent free PSA for any other population of men.Performed at: [facility] [id number] Director: Earnest Flores PhD, Phone: [phone] Serum or plasma low density lipoprotein (LDL) cholesterol measurement (mass/volume)Ordered By: Rangel Cruz on 09-07-2023 Cholesterol in LDL [Mass/Vol] 64 mg/dL 0-130 [facility] Serum or plasma urea nitroge n measurement (mass/volume)Ordered By: Rangel Cruz on 03-22-2023 Urea nitrogen [Mass/Vol] 20 mg/dL 7-18 [facility] Squamous epithelial cells de tection in urine sediment by light microscopyOrdered By: Rangel Cruz on 03-22-2023 Epithelial cells.squamous LM Ql (Urine sed) 0-5 SEEN /hpf 0-5 [facility] Thin prep Papanicolaou smear with manual screeningOrdered By: Rangel Cruz on 03-22-2023 Thin prep Papanicolaou smear with manual screening 20 U/L 15-37 [facility] Thin prep Papanicolaou smear with manual screening 5 5-15 [facility] Urine blood detectionOrdered By: Rangel Cruz on 03-22-2023 RBC Ql (U) 10 /ul Negative [facility] RBC Ql (U) 0-5 SEEN /hpf 0-5 [facility] Urine clarityOrdered By: James Cruz on 03-22-2023 Clarity (U) Clear Clear [facility] Urine color determinationOrd ered By: Rangel Cruz on 03-22-2023 Color (U) Yellow Yellow [facility] Urine glucose detectionOrder ed By: Rangel Cruz on 03-22-2023 Glucose Ql (U) Normal mg/dl Normal [facility] Urine leukocyte esterase det ection by dipstickOrdered By: Rangel Cruz on 03-22-2023 Leukocyte esterase Test strip Ql (U) 100 /ul Negative [facility] Urine pHOrdered By: Rangel gamble on 03-22-2023 pH (U) 6.0 [pH] 5.0 - 8.0 [facility] Urine sediment bacteria coun t by microscopy (number/high power field)Ordered By: Rangel Cruz on 03-22-2023 Bacteria LM.HPF (Urine sed) [#/Area] RARE /hpf None Seen [facility] Urine specific gravity measu rementOrdered By: Rangel Cruz on 03-22-2023 Specific gravity (U) [Rel density] 1.010 1.002-1.030 [facility] Urobilinogen Auto test strip Ql (U)Ordered By: Rangel Cruz on 03-22-2023 Urobilinogen Ql (U) Normal mg/dl Normal [facility] Absolute lymphocyte countOrd ered By: Dr. Cruz on 08-22-2022 Lymphocytes Auto (Unsp spec) [#/Vol] 0.98 10*3/uL 0.83-4.51 [facility] Basophil percentageOrdered B y: Dr. Cruz on 08-22-2022 Basophil percentage 5-10 SEEN /hpf 0-5 [facility] Basophils/100 WBC (Bld) 0.6 % 0-1 [facility] Bilirubin [Mass/Vol] 0.90 mg/dL 0.20-1.00 [facility] Comment on above: For patients on eltr ombopag therapy, use of [employer] TBIL is not recommended. Chloride [Moles/Vol] 108 mmol/L 98-107 [facility] Cholesterol [Mass/Vol] 136 mg/dL <200 [facility] Comment on above: <200 mg/dL Desirable 200-240 mg/dL Borderline >240 mg/dL High Risk Eosinophils/100 WBC (Bld) 0.8 % 0-5 [facility] Glucose [Mass/Vol] 93 mg/dL 74-106 [facility] Neutrophils (Bld) [#/Vol] 3.8 10*3/uL 2.0-7.7 [facility] Neutrophils/100 WBC (Bld) 72.7 % 47-70 [facility] Potassium [Moles/Vol] 3.9 mmol/L 3.5-5.1 [facility] Protein [Mass/Vol] 6.9 g/dL 6.4-8.2 [facility] Sodium [Moles/Vol] 142 mmol/L 136-145 [facility] Triglyceride [Mass/Vol] 59 mg/dL <199 [facility] Comment on above: The drugs N-Acetylcy steine and Metamizole may falsely depress this assay.Serum Triglycerides Reference Interval Normal <150 mg/dL Borderline high 150 - 199 mg/dL High 200 - 499 mg/dL Very High > or = 500 mg/dL WBC (Bld) [#/Vol] 5.2 10*3/uL 4.4-11.0 [facility] Bilirubin Test strip Ql (U)O rdered By: Dr. Cruz on 08-22-2022 Bilirubin Ql (U) Negative Negative [facility] Blood erythrocytes count (nu mber/volume)Ordered By: Dr. Cruz on 08-22-2022 RBC (Bld) [#/Vol] 4.24 10*6/uL 4.6-6.2 [facility] Blood hemoglobin measurement (mass/volume)Ordered By: Dr. Cruz on 08-22-2022 Hemoglobin (Bld) [Mass/Vol] 13.4 g/dL 13.0-16.5 [facility] Blood lymphocytes/100 leukoc ytesOrdered By: Dr. Cruz on 08-22-2022 Lymphocytes/100 WBC (Bld) 18.8 % 19-41 [facility] Blood monocytes/100 leukocyt esOrdered By: Dr. Cruz on 08-22-2022 Monocytes/100 WBC (Bld) 6.9 % 0-10 [facility] Blood platelet mean volumeOr dered By: Dr. Cruz on 08-22-2022 Platelet mean volume (Bld) [Entitic vol] 11.9 fL 6.2-12.0 [facility] Determination of erythrocyte mean corpuscular volume (MCV)Ordered By: Dr. Cruz on 08-22-2022 MCV (RBC) [Entitic vol] 97.6 fL 80-94 [facility] Hematocrit Auto (Bld) [Volum e fraction]Ordered By: Dr. Cruz on 08-22-2022 Hematocrit (Bld) [Volume fraction] 41.4 % 40-54 [facility] Ketones Test strip Ql (U)Ord ered By: Dr. Cruz on 08-22-2022 Ketones Ql (U) Negative Negative [facility] Laboratory - Chemistry and C hemistry - challengeOrdered By: Dr. Cruz on 08-22-2022 ALP [Catalytic activity/Vol] 54 U/L 45-117 [facility] ALT [Catalytic activity/Vol] 19 U/L 16-61 [facility] CO2 [Moles/Vol] 26.0 mmol/L 21.0-32.0 [facility] Globulin (S) [Mass/Vol] 3.0 g/dL 2.2-4.2 [facility] Urea nitrogen/Creatinine [Mass ratio] 19.8 mg/mg 10-20 [facility] - Hematology and Cell countsOrdered By: Dr. Cruz on 08-22-2022 Erythrocyte distribution width (RBC) [Entitic vol] 44.9 fL 35.1-43.9 [facility] Erythrocyte distribution width (RBC) [Ratio] 12.7 % 11.6-14.6 [facility] Immature granulocytes/100 WBC (Bld) 0.200 % 0.0-0.9 [facility] Comment on above: IG% - Immature Granu locytes (promyelocytes, myelocytes and metamyelocytes) > 1% indicates that a LEFT SHIFT is Present. MCH (RBC) [Entitic mass] 31.6 pg 27.0-32.0 [facility] Nucleated RBC/100 WBC (Bld) [Ratio] 0 % 0-5 [facility] MCHC Auto (RBC) [Mass/Vol]Or dered By: Dr. Cruz on 08-22-2022 MCHC (RBC) [Mass/Vol] 32.4 g/dL 32-36 [facility] Mucus LM Ql (Urine sed)Order ed By: Dr. Cruz on 08-22-2022 Mucus Ql (Urine sed) 0 SEEN /hpf [facility] Nitrite Test strip Ql (U)Ord ered By: Dr. Cruz on 08-22-2022 Nitrite Ql (U) Negative Negative [facility] No Panel InformationOrdered By: Dr. Cruz on 08-22-2022 Estimated GFR (MDRD) Amer 80 mL/min >60 [facility] Comment on above: GFR Calc Estimated GFR (MDRD) Non-Af Amer 66 mL/min >60 [facility] Comment on above: Non- GFR Calc Percent Free Prostate Specific Ag 1.55 ng/mL N/A [facility] Comment on above: Amanda ECLIA methodol ogy. Prostate Specific Ag, Ultra-Sensitv 4.890 ng/mL 0.000-4.000 [facility] Comment on above: Amanda ECLIA methodol ogy.According to the [place] [employer], Serum PSAshould decrease and remain at undetectable levels afterradical prostatectomy. The AUA defines biochemicalrecurrence as an initial PSA value 0.200 ng/mL or greaterfollowed by a subsequent confirmatory PSA value 0.200 ng/mLor greater. Values obtained with different assay methods orkits cannot be used interchangeably. Results cannot beinterpreted as absolute evidence of the presence or absenceof malignant disease. Thyroid Stimulating Hormone (TSH) 2.09 uIU/mL 0.358-3.74 [facility] Platelets bldOrdered By: Dr. Cruz on 08-22-2022 Platelets (Bld) [#/Vol] 116 10*3/uL 150-450 [facility] Protein Test strip Ql (U)Ord ered By: Dr. Cruz on 08-22-2022 Protein Ql (U) Negative Negative [facility] Serum or plasma albumin nick urement (mass/volume)Ordered By: Dr. Cruz on 08-22-2022 Albumin [Mass/Vol] 3.9 g/dL 3.2-5.0 [facility] Serum or plasma albumin/glob ulin mass ratioOrdered By: Dr. Cruz on 08-22-2022 Albumin/Globulin [Mass ratio] 1.3 {ratio} 0.9-2.4 [facility] Serum or plasma calcium nick urement (mass/volume)Ordered By: Dr. Cruz on 08-22-2022 Calcium [Mass/Vol] 9.3 mg/dL 8.5-10.1 [facility] Serum or plasma cholesterol in HDL measurement (mass/volume)Ordered By: Dr. Cruz on 08-22-2022 Cholesterol in HDL [Mass/Vol] 46 mg/dL >40 [facility] Comment on above: The drugs N-Acetylcy steine and Metamizole may falsely depress this assay. Reference Range HDL <40 mg/dL Low HDL Cholesterol HDL >or= 60 mg/dL High HDL Cholesterol Serum or plasma cholesterol in VLDL measurement (mass/volume)Ordered By: Dr. Cruz on 08-22-2022 Cholesterol in VLDL [Mass/Vol] 12 mg/dL 5-40 [facility] Serum or plasma creatinine m easurement (mass/volume)Ordered By: Dr. Cruz on 08-22-2022 Creatinine [Mass/Vol] 1.16 mg/dL 0.70-1.30 [facility] Comment on above: The validity of the calculated GFR & GFRAA in patients over 70 years has not been determined. Clinical correlation is essential. Serum or plasma free prostat e specific antigen/total prostate specific antigen ratioOrdered By: Dr. Cruz on 08-22-2022 Free PSA/Total PSA [Mass fraction] 31.7 % . [facility] Comment on above: The table below list s the probability of prostate cancer formen with non-suspicious SHARI results and total PSA between4 and 10 ng/mL, by patient age (Bozena et al, ITZEL 1998,279:1542). % Free PSA 50-64 yr 65-75 yr 0.00-10.00% 56% 55% 10.01-15.00% 24% 35% 15.01-20.00% 17% 23% 20.01-25.00% 10% 20% >25.00% 5% 9%Please note: Bozena et al did not make specific recommendations regarding the use of percent free PSA for any other population of men.Performed at: [facility] [id number] Director: Earnest Flores PhD, Phone: [phone] Serum or plasma low density lipoprotein (LDL) cholesterol measurement (mass/volume)Ordered By: Dr. Cruz on 08-22-2022 Cholesterol in LDL [Mass/Vol] 78 mg/dL 0-130 [facility] Serum or plasma urea nitroge n measurement (mass/volume)Ordered By: Dr. Cruz on 08-22-2022 Urea nitrogen [Mass/Vol] 23 mg/dL 7-18 [facility] Squamous epithelial cells de tection in urine sediment by light microscopyOrdered By: Dr. Cruz on 08-22-2022 Epithelial cells.squamous LM Ql (Urine sed) 0-5 SEEN /hpf 0-5 [facility] Thin prep Papanicolaou smear with manual screeningOrdered By: Dr. Cruz on 08-22-2022 Thin prep Papanicolaou smear with manual screening 21 U/L 15-37 [facility] Thin prep Papanicolaou smear with manual screening 8 5-15 [facility] Urine blood detectionOrdered By: Dr. Cruz on 08-22-2022 RBC Ql (U) Negative Negative [facility] RBC Ql (U) 0 SEEN /hpf 0-5 [facility] Urine clarityOrdered By: Dr. Cruz on 08-22-2022 Clarity (U) Clear Clear [facility] Urine color determinationOrd ered By: Dr. Cruz on 08-22-2022 Color (U) Yellow Yellow [facility] Urine glucose detectionOrder ed By: Dr. Cruz on 08-22-2022 Glucose Ql (U) Normal mg/dl Normal [facility] Urine leukocyte esterase det ection by dipstickOrdered By: Dr. Cruz on 08-22-2022 Leukocyte esterase Test strip Ql (U) 500 /ul Negative [facility] Urine pHOrdered By: Dr. Adam mcfarlane on 08-22-2022 pH (U) 6.5 [pH] 5.0 - 8.0 [facility] Urine sediment bacteria coun t by microscopy (number/high power field)Ordered By: Dr. Cruz on 08-22-2022 Bacteria LM.HPF (Urine sed) [#/Area] RARE /hpf None Seen [facility] Urine specific gravity measu rementOrdered By: Dr. Cruz on 08-22-2022 Specific gravity (U) [Rel density] 1.005 1.002-1.030 [facility] Urobilinogen Auto test strip Ql (U)Ordered By: Dr. Cruz on 08-22-2022 Urobilinogen Ql (U) Normal mg/dl Normal [facility] No Panel Informationon 03-09 Free Prostate Specific Antigen 1.43 ng/mL N/A [facility] Work Phone: Comment on above: [employer] ECLIA methodol ogy. Percent Free Prostate Specific Ag 29.2 % . [facility] Work Phone: Comment on above: The table below list s the probability of prostate cancer formen with non-suspicious SHARI results and total PSA between4 and 10 ng/mL, by patient age (Bozena et al, ITZEL 1998,279:1542). % Free PSA 50-64 yr 65-75 yr 0.00-10.00% 56% 55% 10.01-15.00% 24% 35% 15.01-20.00% 17% 23% 20.01-25.00% 10% 20% >25.00% 5% 9%Please note: Bozena et al did not make specific recommendations regarding the use of percent free PSA for any other population of men. Prostate Specific Antigen Comment . [facility] Work Phone: Comment on above: The percent free PSA is performed on a reflex basis onlywhen the total PSA is between 4.0 and 10.0 ng/mL.Performed at: [facility] [id number] Director: Earnest Flores PhD, Phone: [phone] Prostate Specific Antigen Total 4.9 ng/mL 0.0-4.0 [facility] Work Phone: Comment on above: Amanda ECLIA methodol ogy.According to the [place] [employer], Serum PSAshould decrease and remain at undetectable levels afterradical prostatectomy. The AUA defines biochemicalrecurrence as an initial PSA value 0.2 ng/mL or greaterfollowed by a subsequent confirmatory PSA value 0.2 ng/mLor greater. Values obtained with different assay methods orkits cannot be used interchangeably. Results cannot beinterpreted as absolute evidence of the presence or absenceof malignant disease. Basophil percentageon 2021 Bilirubin [Mass/Vol] 0.80 mg/dL 0.20-1.00 [facility] Work Phone: Comment on above: For patients on eltr ombopag therapy, use of [employer] TBIL is not recommended. Chloride [Moles/Vol] 98 mmol/L 98-107 [facility] Work Phone: Cholesterol [Mass/Vol] 156 mg/dL <[facility] Work Phone: Comment on above: <200 mg/dL Desirable 200-240 mg/dL Borderline >240 mg/dL High Risk Glucose [Mass/Vol] 98 mg/dL 74-106 [facility] Work Phone: Potassium [Moles/Vol] 4.1 mmol/L 3.5-5.1 Lr ster [facility] Work Phone: Protein [Mass/Vol] 7.0 g/dL 6.4-8.2 [facility] Work Phone: Sodium [Moles/Vol] 133 mmol/L 136-145 [facility] Work Phone: Triglyceride [Mass/Vol] 55 mg/dL <199 [facility] Work Phone: Comment on above: The drugs N-Acetylcy steine and Metamizole may falsely depress this assay.Serum Triglycerides Reference Interval Normal <150 mg/dL Borderline high 150 - 199 mg/dL High 200 - 499 mg/dL Very High > or = 500 mg/dL Laboratory - Chemistry and C hemistry - challengeon 02-22-2022 ALP [Catalytic activity/Vol] 61 U/L 45-117 [facility] Work Phone: ALT [Catalytic activity/Vol] 20 U/L 16-61 [facility] Work Phone: CO2 [Moles/Vol] 28.0 mmol/L 21.0-32.0 [facility] Work Phone: Globulin (S) [Mass/Vol] 2.9 g/dL 2.2-4.2 [facility] Work Phone: Urea nitrogen/Creatinine [Mass ratio] 16.8 mg/mg 10-20 [facility] Work Phone: No Panel Informationon 02-22 Estimated GFR (MDRD) Amer 78 mL/min >60 [facility] Work Phone: Comment on above: GFR Calc Estimated GFR (MDRD) Non-Af Amer 64 mL/min >60 [facility] Work Phone: Comment on above: Non- GFR Calc Prostate Specific Antigen Screen 4.80 ng/mL 0.00-4.00 [facility] Work Phone: Comment on above: This test was perfor med using the TPSA assay method for the[facility] system. Values obtained with differentassay methods cannot be used interchangably.When changing PSA assays in the course of monitoring apatient, additional sequential testing should be carriedout to confirm baseline values. Serum or plasma albumin nick urement (mass/volume)on 02-22-2022 Albumin [Mass/Vol] 4.1 g/dL 3.2-5.0 [facility] Work Phone: Serum or plasma albumin/glob ulin mass ratioon 02-22-2022 Albumin/Globulin [Mass ratio] 1.4 {ratio} 0.9-2.4 [facility] Work Phone: Serum or plasma calcium nick urement (mass/volume)on 02-22-2022 Calcium [Mass/Vol] 9.1 mg/dL 8.5-10.1 [facility] Work Phone: Serum or plasma cholesterol in HDL measurement (mass/volume)on 02-22-2022 Cholesterol in HDL [Mass/Vol] 52 mg/dL >40 [facility] Work Phone: Comment on above: The drugs N-Acetylcy steine and Metamizole may falsely depress this assay. Reference Range HDL <40 mg/dL Low HDL Cholesterol HDL >or= 60 mg/dL High HDL Cholesterol Serum or plasma cholesterol in VLDL measurement (mass/volume)on 02-22-2022 Cholesterol in VLDL [Mass/Vol] 11 mg/dL 5-40 [facility] Work Phone: Serum or plasma creatinine m easurement (mass/volume)on 02-22-2022 Creatinine [Mass/Vol] 1.19 mg/dL 0.70-1.30 [facility] Work Phone: Comment on above: The validity of the calculated GFR & GFRAA in patients over 70 years has not been determined. Clinical correlation is essential. Serum or plasma low density lipoprotein (LDL) cholesterol measurement (mass/volume)on 02-22-2022 Cholesterol in LDL [Mass/Vol] 93 mg/dL 0-130 [facility] Work Phone: Serum or plasma urea nitroge n measurement (mass/volume)on 02-22-2022 Urea nitrogen [Mass/Vol] 20 mg/dL 7-18 [facility] Work Phone: Thin prep Papanicolaou smear with manual screeningon 02-22-2022 Thin prep Papanicolaou smear with manual screening 22 U/L 15-37 [facility] Work Phone: Thin prep Papanicolaou smear with manual screening 7 5-15 [facility] Work Phone: Vital Signs Date Time Vital Sign Value Performing Clinician Faci lity 12-16-2024 07:30-0400 Body height 180.[address] Rangel Cruz MD Work Phone: [phone] [place] [address] 12-16-2024 07:30-0400 Body mass index (BMI) [Ratio] 27 kg/m2 Dr. Rangel Cruz MD Work Phone: [phone] [place] [address] 12-16-2024 07:30-0400 Body weight 87.[address] Rangel Cruz MD Work Phone: [facility] 12-16-2024 07:30-0400 Diastolic blood pressure 72 mm[Hg] Dr. Rangel Cruz MD Work Phone: [facility] 12-16-2024 07:30-0400 Heart rate 62 /min Dr. Rangel Cruz MD Work Phone: [phone] [place] [address] 12-16-2024 07:30-0400 Respiratory rate 16 /min Dr. Rangel Cruz MD Work Phone: [facility] 12-16-2024 07:30-0400 Systolic blood pressure 145 mm[Hg] Dr. Rangel Cruz MD Work Phone: [facility] 03-24-2023 09:46-0400 Body height 180.[address] Rangel Cruz Work Phone: [facility] 03-24-2023 09:46-0400 Body mass index (BMI) [Ratio] 24.3 kg/m2 Dr. Rangel Cruz Work Phone: [facility] 03-24-2023 09:46-0400 Body temperature 98.2 [degF] Dr. Rangel Cruz Work Phone: [facility] 03-24-2023 09:46-0400 Body weight 78.[address] Rangel Cruz Work Phone: [facility] 03-24-2023 09:46-0400 Diastolic blood pressure 65 mm[Hg] Dr. Rangel Cruz Work Phone: [facility] 03-24-2023 09:46-0400 Heart rate 80 /min Dr. Rangel Cruz Work Phone: [facility] 03-24-2023 09:46-0400 Respiratory rate 15 /min Dr. Rangel Cruz Work Phone: [facility] 03-24-2023 09:46-0400 SaO2% (BldA) [Mass fraction] 93 % Dr. Rangel Cruz Work Phone: [facility] 03-24-2023 09:46-0400 Systolic blood pressure 142 mm[Hg] Dr. Rangel Cruz Work Phone: [facility] Encounters Encounter Date Encounter Type Care Provider Facility Start: 01-21-2025 ambulatory Rangel Cruz Facilit y:[facility] Start: 12-22-2024 ambulatory Rangel Cruz Facilit y:[facility] Start: 12-16-2024 End: 12-16-[address] Jeannette Morales MD -[facility] Work Phone: Start: 12-16-2024 End: 12-16-[address] Rangel Cruz MD Work Phone: [facility] Work Phone: Start: 10-02-2024 End: 10-02-[address] Rangel Cruz MD Work Phone: [facility] Work Phone: Start: 10-02-2024 End: 10-02-[address] Rangel Cruz MD -Laboratory, Specimen Work Phone: Start: 10-01-2024 End: 10-02-[address] Rangel Cruz MD Work Phone: [facility] Work Phone: Start: 10-01-2024 End: 10-01-[address] Rangel Cruz MD -[facility] Start: 10-01-2024 End: 10-01-2024 ambulatory Rangel Cruz Facility:[facility] Start: 04-02-2024 End: 04-02-2024 ambulatory Rangel Cruz Facility:[facility] Start: 09-25-2023 End: 09-25-2023 ambulatory [facility] Work Phone: Start: 09-25-2023 End: 09-25-2023 Patient encounter procedure [facility] Start: 03-24-2023 End: 03-24-[address] Rangel Cruz Work Phone: [facility] Work Phone: Start: 03-22-2023 End: 03-22-[address] Rangel Cruz Work Phone: [facility] Work Phone: Start: 03-22-2023 End: 03-22-[address] Rangel Cruz Work Phone: [facility] Start: 08-22-2022 End: 08-22-2022 ambulatory [facility] Work Phone: Start: 08-22-2022 End: 08-22-2022 Patient encounter procedure [facility] Start: 05-18-2022 End: 05-18-2022 Patient encounter procedure [facility] Start: 05-01-2022 End: 05-01-2022 ambulatory [facility] Work Phone: Start: 05-01-2022 End: 05-01-2022 Discharged Recurring [facility]-Physical Therapy Start: 03-09-2022 End: 03-09-2022 ambulatory [facility] Work Phone: Start: 03-09-2022 End: 03-09-2022 [facility] Start: 02-22-2022 End: 02-22-2022 [facility] Procedures Date Procedure Procedure Detail Performing Clinician Start: 10-02-[address] Rangel Cruz MD Work Phone: Start: 10-01-2024 Free prostate specif ic antigen level Dr. Rangel Cruz MD Work Phone: Comment on above: [facility] [employer] [employer]. Start: 10-01-2024 Prostate specific an tigen measurement Dr. Rangel Cruz MD Work Phone: Comment on above: [employer].According to the [place] [employer], Serum PSAshould decrease and remain at undetectable levels afterradical prostatectomy. The AUA defines biochemicalrecurrence as an initial PSA value 0.200 ng/mL or greaterfollowed by a subsequent confirmatory PSA value 0.200 ng/mLor greater. Values obtained with different assay methods orkits cannot be used interchangeably. Results cannot beinterpreted as absolute evidence of the presence or absenceof malignant disease. Start: 10-01-2024 Urnls dip stick/tabl et reagent auto microscopy Dr. Rangel Cruz MD Work Phone: Start: 05-18-2022 MRI of lumbar spine Plan of Treatment Date Care Activity Detail Author Start: 12-16-2024 Evaluation of diagno stic study results [facility] Start: 09-27-2023 Urine culture Urine Culture [facility] Start: 09-27-2023 [facility] Prostate specific Ag [Mass/volume] in Serum or Plasma [facility] Work Phone: Payers Date Payer Category Payer Private Health Insurance [id number] 2024 Self-pay [id number] Medicaid [id number] Unknown [id number] Unknown [id number] [id number] [id number] Unknown [id number] 2.16.8 [id number] Unknown [id number] 2.16.8 [id number] Unknown [id number] 2.16.8 [id number] Unknown 1982 2.16.8 [id number] Unknown [id number] 2.16.8 [id number] Social History Date Type Detail Facility Start: 11-21-2017 End: 03-24-2023 Tobacco smoking status NHIS Unknown if ever smoked [facility] Start: 1950 Sex Assigned At Male [facility] Start: 03-24-2023 [facility] (finding[facility] Start: 10-09-2024 End: 10-10-2024 Sex Male (finding) [facility] Start: 12-15-2024 [facility] Current some day smoker [facility] Sexual Orientation Heterosexual (finding) [facility] Progress note 12-16-2024 Note Date & Type Note Facility 12-16-2024 Progress note [facility] Progress note 12-16-2024 Note Date & Type Note Facility 12-16-2024 Progress note Note Date/Time December 16, 2024 9:07am [facility] [address] [place] [address] OFFICE VISIT Date of Service: 12/16/24 MR#: [id number] Acct: [id number] Name: FUAD FELIX Rep #: [id number] : 1950 Provider: Dr. Kali Morales MD Age/Sex: 74/M Location: [facility] Status: Signed HPI HPI History of Present Illness Details: This very pleasant 74-year-old gentleman with past medical history significant for hypertension has been referred to us for bradycardia and PVCs. Patient exercises every day doing stationary bike as well as resistance training. Denies any lightheadedness or dizziness. No syncope or presyncope. Denies any chest pains or shortness of breath either at rest or with exertion. No palpitations. No orthopnea. No PND. No ankle edema. Patient has had an ECG done at his primary care physician's office. It showed sinus bradycardia with a PVC. Subsequently he has been referred to us. An echocardiogram done in 2021 reported chordal JONE. 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 Accompanied by: Self Is patient in pain?: No Allergies No Known Allergies Allergy (Verified 12/16/24 08:37) Medications ?Medication ?Instructions ?Recorded ?Confirmed ?Type lisinopril 5 mg tablet 5 mg PO DAILY 03/24/2312/16 History Prevagen Extra Strength PO DAILY 12/15/24 History Prostate Health Beta Plus PO DAILY 12/15/24 History hydrochlorothiazide 25 mg tablet mg PO 12/15/24 History melatonin 5 mg tablet 5 mg PO HS 12/15/24 12/16/24 History meloxicam 7.5 mg tablet mg PO 12/15/24 12/16/24 Hist ory zajtkuob-vbn-flvfy acid 0.4 1 tab PO QDAY 12/15/2410/07 History mg-lycopene 300 mcg-lutein 250 mcg tablet (Centrum Silver) trazodone 100 mg tablet mg PO 12/15/24 12/16/24 Hist ory Ejection fraction %: 55 Have you fallen in the past year?: No PFSH Medical History Arthritis Bradycardia Elevated PSA Hypertension Insomnia Surgical History History of inguinal hernia repair Family History Father Myocardial infarction Mother Dementia Social History current occupational status: retired 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[employer]) sexually active: No do you think of yourself as: straight/heterosexual Smoking Status: Current some day smoker tobacco type: pipe other: rarely in thesummer; quit regular smoking in 2021 alcohol intake: never substance use type: does not use ROS Const Const: Negative for fatigue, weakness, headache(s) or weight gain ENT ENT: Negative for headache(s), dizziness, Nosebleed/epistaxis or balance problems Cardio Chest Pain: No Palpitations: No Edema: None Muscle aches with walking: None Resp Respiratory: Negative for SOB with activity, SOB at rest or SOB orthopneaundefinedSOB lying down GI GI: Negative nausea, vomiting or heartburn Musc Musc: Positive for joint pain (orthopedic degeneration); Negative for muscle aches/ myalgia, muscle weakness or balance problems Neuro Neuro: Negative for dizziness, lightheadedness, near syncope, syncope, headache(s) or weakness Endo Endo: Negative for fatigue Cardiology Exam Const Appearance: comfortable and no acute distress Nutritional Appearance: well nourished Neck Neck: no JVD Carotids: Negative bruit Chest Auscultation: Bilateral: Clear to Auscultation Cardio Rate: regular rate Rhythm: regular rhythm Heart sounds: S1 normal and S2 normal Neuro General: patient alert, patient awake and patient oriented x3 Extremities Lower Extremity Edema: None: Bilateral Supplemental Info Supplemental Information Echocardiogram 07/29/2021: Interpretation Summary The study was technically difficult. Left ventricular systolic function is normal. The estimated ejection fraction is 55 %. Mid cavitary false tendon noted. The left atrium is mildly enlarged. Chordal systolic anterior motion of the mitral valve. Trivial mitral valve insufficiency. Trivial tricuspid valve insufficiency. The aortic valve is not well visualized, however, based upon the images obtainedthere appears to be thickening, calcification, and partial restriction. Mild (1+) aortic valve insufficiency. Right ventricular systolic pressure estimated to be 26 mmHg. No evidence for diastolic dysfunction. Assessment and Plan Assessment and Plan (1) Bradycardia: Status: Chronic Plan: Patient has baseline sinus bradycardia. He remains asymptomatic. I will check an exercise stress test to evaluate for chronotropic competence. Check TSH. (2) PVC (premature ventricular contraction): Status: Chronic Plan: Check echocardiogram. Check TSH. Magnesium. Complete metabolic panel. (3) Abnormal echocardiogram: Status: Suspected Plan: Previously chordal JONE reported. No history of syncope or presyncope. Will repeat echocardiogram. (4) Hypertension: Status: Chronic Plan: Blood pressure mildly elevated in the office today however patient keeps a meticulous record at home. All his blood pressure readings on his log have beenat goal. Continue lisinopril. Also on hydrochlorothiazide. Orders: Orders 12 Lead EKG performed by [facility] Today R00.1 - Bradycardia, unspecified Plan Details Follow Up: 3 Months Coding Level of Care Code Off vis,new,level 4 Diagnoses Bradycardia R00.1 PVC (premature ventricular contraction) I49.3 Abnormal echocardiogram R93.1 Hypertension I10 Coding Level of Care Code Off vis,new,level 4 Diagnoses Bradycardia R00.1 PVC (premature ventricular contraction) I49.3 Abnormal echocardiogram R93.1 Hypertension I10 Clinical Quality Measures Falls Risk Screening/Assistive Devices Have you fallen in the past year?: No Cardiac Ejection fraction %: 55 12/16/24 0907 <Electronically signed by Jeannette Morales MD> Date _ Jeannette Morales MD Cosigner Signature: Date (if applicable) CC: Dr. Rangel Cruz MD ~ [employer] Work Phone: Evaluation note Note Date & Type Note Facility Evaluation note [facility]: Evaluation note Note Date & Type Note Facility Evaluation note Diagnosis Onset Date Hornet sting acute [facility] Work Phone: Evaluation note Note Date & Type Note Facility Evaluation note Diagnosis Onset Date Resolution Bradycardia chronic December 16 8:28am Hypertension chronic December 16 8:28am PVC (premature ventricular contraction) chronic December 8:28am Abnormal echocardiogram suspected J 2024 8:28am [facility] Work Phone: Reason for referral (narrative) Note Date & Type Note Facility Reason for referral (narrative) No reason for referral information available [facility] Work Phone: Advance Directives No Advanced Directives Records Found Advance Directive Response Recorded Date/ Time Living Will No November 21, 2017 8: 30pm Power of Solid Waste Disposal Manager No November 21, 2017 8:30pm Advance Directive Response Recorded Date/ Time Living Will No November 21, 2017 7: 30pm Power of Solid Waste Disposal Manager No November 21, 2017 7:30pm Chief Complaint and Reason for Visit Chief Complaint OSTEOARTHRITIS LT KN EE. RX HERE Chief Complaint Spinal stenosis, lum bar region without neurogenic Chief Complaint RIGHT WRIST BEE STIN G Reason for Visit Hornet sting Chief Complaint Admit Date BRADYCARDIA, PVC CONSTANT W/SINUS PAUSE December 16, 2024 8:28am Reason for Visit Admit Date Bradycardia December 16, 2024 8:28a m Hypertension December 16, 2024 8:28a m PVC (premature ventricular contraction) December 16, 2024 8:28am Abnormal echocardiogram December 16, 2024 8 :28am Family History No Family History Records Found Relationship Condition Age at Onset Recorded Date/T doe father Myocardial infarction Unknown mother Dementia Unknown Summary Purpose Additional Source Comments Goals (unrecognized section and content) Goals may be documented in a n alternate sectionGoals may be documented in an alternate sectionGoals may be documented in an alternate sectionGoals may be documented in an alternate sectionGoals may be documented in an alternate sectionGoals may be documented in an alternate sectionGoals may be documented in an alternate sectionGoals may be documented in an alternate sectionGoals may be documented in an alternate section Care Teams (unrecognized sec tion and content) Team Status: Active Member Role Status Dates No Primary Care Physician Family Provider Active Dr. Rangel Cruz MD Primary Care Provider Active Team Status: Inactive Member Role Status Dates Dr. Rangel Cruz MD Primary Care Provider Active Dr. Ajit Norwood DO Attending Provider, Referring P lesli Active Team Status: Inactive Member Role Status Dates Dr. Rangel Cruz MD Primary Care Pr ovider, Attending Provider, Referring Provider Active Team Status: Inactive Member Role Status Dates Dr. Rangel Cruz MD Primary Care Provider, Referr ing Provider Active Tyrel WEINBERG, PA Attending Provider Active Team Status: Inactive Member Role Status Dates Dr. Rangel Cruz MD Primary Care Provider, Attend ing Provider Active Team Status: Active Member Role Status Dates Dr. Rangel Cruz MD Primary Care Provider Active Team Status: Inactive Member Role Status Dates Dr. Rangel Cruz MD Primary Care Provider Active Start: October 01, 2024 End: October 01, 2024 Dr. Rangel Cruz MD Attending Provider Active Start: October 01, 2024 End: October 01, 2024 Dr. Rangel Cruz MD Referring Provider Active Start: October 01, 2024 End: October 01, 2024 Team Status: Active Member Role Status Dates Dr. Rangel Cruz MD Primary Care Provider Active Start: October 02, 2024 Dr. Rangel Cruz MD Attending Provider Active Start: October 02, 2024 Dr. Rangel Cruz MD Referring Provider Active Start: October 02, 2024 Team Status: Inactive Member Role Status Dates Dr. Rangel Cruz MD Primary Care Provider Active Start: October 02, 2024 End: October 02, 2024 Dr. Rangel Cruz MD Attending Provider Active Start: October 02, 2024 End: October 02, 2024 Dr. Rangel Cruz MD Referring Provider Active Start: October 02, 2024 End: October 02, 2024 Team Status: Inactive Member Role Status Dates Dr. Rangel Cruz MD Primary Care Provider Active Start: December 16, 2024 End: December 16, 2024 Dr. Rangel Cruz MD Referring Provider Active Start: December 16, 2024 End: December 16, 2024 Dr. Jeannette Morales MD Attending Provider Active Start: December 16, 2024 End: December 16, 2024 (unrecognized sect ion and content) No Status Records Found INFORMATION SOURCE (unrecogn ized section and content) DATE CREATED AUTHOR 12/18/2024 [facility] FOR RECORDS PERTAINING TO PATIENTS WHO ARE OR HAVE BEEN ENROLLED IN A CHEMICAL DEPENDENCY/SUBSTANCEABUSE PROGRAM, SOME INFORMATION MAY BE OMITTED. This clinical summary was aggregated from multiple sources. Caution should be exercised in using it in the provision of clinical care. This summary normalizes information from multiple sources, and as a consequence, information in this document may materially change the coding, format and clinical context of patient data. In addition, data may be omitted in some cases. CLINICAL DECISIONS SHOULD BE BASED ON THE PRIMARY CLINICAL RECORDS. [facility] [employer] [facility]. provides no warranty or guarantee of the accuracy or completeness of information in this document.
== END | disposition home or self-care (01) ==
LOC: PSN 06:47
PROVIDERS: PCP Family Medicine; Referring Provider Internal Medicine Cardiovascular Disease; Visit Provider Internal Medicine Cardiovascular Disease
DX: R00.1 Bradycardia, unspecified (principal); I49.3 Ventricular premature depolarization
CPT/HCPCS: 93225; 93226

== ENCOUNTER → 2024-12-31 | Outpatient (CLI) | payer MEDICARE, SELFPAY ==
[2024-12-31 11:14] LABS: ALB/GLOB Ratio 1.7 RATIO (0.9-2.4); AST(SGOT) 25 U/L (<=37); Alanine Aminotransfer ALT/SGPT 16 U/L (<=46); Albumin, Serum 4.2 g/dL (3.4-4.8); Alkaline Phosphatase 68 U/L (40-129); Anion Gap 11 (5-15); BUN 18 mg/dL (4-19); BUN/Creat Ratio 14.5 RATIO (10-20); Calcium,Total 9.3 mg/dL (7.6-11.0); Carbon Dioxide 23.8 mmol/L (21.0-32.0); Chloride 106 mmol/L (98-108); Creatinine, Serum 1.22 mg/dL (0.70-1.20); EST Glomerular Filtration Rate 63 (>60); Globulin 2.5 g/dL (2.2-4.2); Glucose 95 mg/dL (70-99); Magnesium 2.4 mg/dL (1.5-2.2); Potassium 4.3 mmol/L (3.3-5.1); Protein, Total 6.7 g/dL (5.9-8.4); Sodium Level 140 mmol/L (133-145); Total Bilirubin 0.64 mg/dL (0.00-1.30)
== END | disposition home or self-care (01) ==
LOC: MFPLAB 09:10
PROVIDERS: PCP Family Medicine; Visit Provider Internal Medicine Cardiovascular Disease
DX: I10 Essential (primary) hypertension (principal); R00.1 Bradycardia, unspecified; I49.3 Ventricular premature depolarization
CPT/HCPCS: 36415; 80053; 83735; 84443

== ENCOUNTER 2025-01-21 11:42 | Outpatient (CLI) | payer MEDICARE, SELFPAY ==
--- NOTE | 2025-01-21 11:45 | ECHOD_ITS ---
Reason For Study Reason For Study: ARRHYTHMIA Procedure This was a 2D Doppler, Color Flow transthoracic echocardiogram. Exam performed in department. Left Ventricle Mild concentric left ventricular hypertrophy. Normal LV size. The LV ejection fraction is 60 %. Stage 1 diastolic dysfunction. Right Ventricle Normal right ventricle. Atria The left atrium is mildly enlarged. Normal right atrium. Mitral Valve Mild (1+) mitral valve insufficiency. Tricuspid Valve Trivial tricuspid valve insufficiency. Normal pulmonary artery pressure. Aortic Valve Aortic sclerosis, no stenosis. Mild (1+) aortic valve insufficiency. Pulmonic Valve The pulmonic valve is not well visualized. Great Vessels Normal sized aortic root. Pericardium/Pleural No pericardial effusion. MMode/2D Measurements & Calculations LVIDd: 4.6 cm IVSd: 1.3 cm LVOT diam: 2.2 cm LVIDs: 3.1 cm LVPWd: 1.0 cm LVOT area: 3.6 cm2 RVDd: 3.8 cm FS: 31.3 % asc Aorta Diam: 3.5 cm LAV(MOD-bp): 46.3 ml LVAd ap4: 30.5 cm2 LAV(MOD-bp) Indexed: 22.4 ml/m2 LVLd ap4: 8.7 cm LAV(MOD-sp2): 66.9 ml EDV(MOD-sp4): 88.0 ml LAV(MOD-sp4): 29.0 ml EDV(sp4-el): 90.6 ml LVAs ap4: 17.1 cm2 LVLs ap4: 7.5 cm ESV(MOD-sp4): 31.9 ml ESV(sp4-el): 33.1 ml EF(MOD-sp4): 63.7 % EF(sp4-el): 63.5 % LVAd ap2: 30.1 cm2 SV(MOD-sp4): 56.1 ml SV(MOD-sp2): 50.5 ml LVLd ap2: 8.7 cm SI(MOD-sp4): 27.2 ml/m2 SI(MOD-sp2): 24.5 ml/m2 EDV(MOD-sp2): 87.9 ml EDV(sp2-el): 88.8 ml LVAs ap2: 17.7 cm2 LVLs ap2: 7.2 cm ESV(MOD-sp2): 37.4 ml ESV(sp2-el): 37.0 ml EF(MOD-sp2): 57.5 % SV(sp4-el): 57.5 ml Ao sinus diam: 3.[address] Junction: 3.0 cm LA dimension(2D): 4.2 cm LA A4 area: 12.6 cm2 RA A4 area: 10.5 cm2 TAPSE: 2.1 cm Time Measurements MV dec time: 0.33 sec Doppler Measurements & Calculations MV E max chas: 37.1 cm/sec Lat Peak E' Chas: 12.6 cm/sec Med Peak E' Chas: 8.0 cm/sec MV A max chas: 68.7 cm/sec E/E' lat: 3.0 E/E' med: 4.6 MV E/A: 0.54 MV dec slope: 111.0 cm/sec2 Ao V2 max: 190.5 cm/sec AI max chas: 470.4 cm/sec Ao max P.5 mmHg AI max P.5 mmHg Ao V2 mean: 121.8 cm/sec AI dec slope: 276.5 cm/sec2 Ao mean P.0 mmHg AI P1/2t: 498.3 msec Ao V2 VTI: 36.5 cm AV (velocity ratio): 0.72 JENNIFER(I,D): 2.6 cm2 JENNIFER(V,D): 2.5 cm2 LV V1 max: 130.8 cm/sec SV(LVOT): 96.4 ml PA V2 max: 100.3 cm/sec LV V1 max P.8 mmHg LV V1 mean P.0 mmHg LV V1 mean: 97.5 cm/sec LV V1 VTI: 26.4 cm TR max chas: 196.9 cm/sec TR max P.5 mmHg ECHO/Echo Complete Interpretation Summary The LV ejection fraction is 60 %. Stage 1 diastolic dysfunction. The left atrium is mildly enlarged. Mild (1+) mitral valve insufficiency. Aortic sclerosis, no stenosis. Mild (1+) aortic valve insufficiency. Ordering Physician: Jeannette Morales Referring Physician: Rangel Cruz Performed By: Maegan Do RDCS
--- NOTE | 2025-01-22 11:28 | STRESSREP ---
Stress Test Report Date: 01/21/2025 Procedure: Exercise tolerance test Indications: Arrhythmia Consent: Per the patient Procedure: The patient exercised on a Ambrosio protocol for 9 minutes achieving a peak heart rate of 160 bpm (108% predicted maximal heart rate) with a peak blood pressure 170/72 mmHg and a peak MET capacity of approximately 10.1 MET's. The baseline ECG demonstrated sinus bradycardia with occasional PVCs. The peak exercise ECG showed good chronotropic response with sinus tachycardia. No PVCs were noted with exercise or in recovery. No ischemic changes noted. Occasional PVCs noted pretest but resolved with exercise. The functional capacity was considered excellent for age. The patient had no complaints of chest discomfort during exercise or recovery. The examination was discontinued secondary to target heart rate being achieved. Impression: 1. Technically adequate (percent predicted maximal heart rate greater than 85%) exercise tolerance test 2. Peak exercise ECG with no ischemic changes. Good chronotropic response. No PVCs or any other significant arrhythmia noted with exercise. 3. There were no cardiac dysrhythmias during exercise or recovery This note was generated with [employer] software. It may contain incorrect words, spelling, and punctuation that were not noted in checking the note before signing.
== END 2025-01-21 23:59 | disposition home or self-care (01) ==
LOC: CVS 11:45
PROVIDERS: PCP Family Medicine; Referring Provider Internal Medicine Cardiovascular Disease; Visit Provider Internal Medicine Cardiovascular Disease
DX: I49.3 Ventricular premature depolarization (principal); R93.1 Abnormal findings on diagnostic imaging of heart and coronary circulation; R00.1 Bradycardia, unspecified; I08.0 Rheumatic disorders of both mitral and aortic valves; R06.02 Shortness of breath
CPT/HCPCS: 93017; 93306